=== PATIENT | male | born 1965 | race Two or more races ===

== ENCOUNTER → 2021-06-30 | Outpatient (CLI) | payer MEDICAID | END | disposition home or self-care (01) | LOC: Rad HDHVI 12:47 | PROVIDERS: ATTEND Internal Medicine Cardiovascular Disease | DX: I10 Essential (primary) hypertension (principal); E78.5 Hyperlipidemia, unspecified; R42 Dizziness and giddiness | CPT/HCPCS: 93880 ==

== ENCOUNTER → 2022-02-02 | Outpatient (CLI) | payer MEDICARE, MEDICAID | END | disposition home or self-care (01) | LOC: Rad HDHVI 09:20 | PROVIDERS: ATTEND Internal Medicine Cardiovascular Disease | DX: I82.409 Acute embolism and thrombosis of unspecified deep veins of unspecified lower extremity (principal); I73.9 Peripheral vascular disease, unspecified; M79.661 Pain in right lower leg | CPT/HCPCS: 93926; 93971 ==

== ENCOUNTER → 2022-07-26 | Outpatient (CLI) | payer MEDICARE, MEDICAID ==
[~2022-07-26] VITALS: Ht 182.9 cm; Wt 90.7 kg
== END | disposition home or self-care (01) ==
LOC: Rad HDHVI 13:00
PROVIDERS: ATTEND Internal Medicine Cardiovascular Disease
DX: I25.10 Atherosclerotic heart disease of native coronary artery without angina pectoris (principal); I25.2 Old myocardial infarction; R55 Syncope and collapse; I10 Essential (primary) hypertension; E11.9 Type 2 diabetes mellitus without complications; E78.5 Hyperlipidemia, unspecified; Z82.49 Family history of ischemic heart disease and other diseases of the circulatory system; Z95.0 Presence of cardiac pacemaker
CPT/HCPCS: 78452; 93017; 96374; A9500

== ENCOUNTER → 2022-08-02 | Outpatient (CLI) | payer MEDICARE, MEDICAID | END | disposition home or self-care (01) | LOC: Rad HDHVI 12:59 | PROVIDERS: ATTEND Internal Medicine Cardiovascular Disease | DX: I08.8 Other rheumatic multiple valve diseases (principal); I11.9 Hypertensive heart disease without heart failure | CPT/HCPCS: 93306 ==

== ENCOUNTER → 2022-11-04 | Outpatient (CLI) | payer MEDICARE, MEDICAID ==
[2022-11-04 15:03] LABS: Basophils # (auto) 0 10 ^3/uL (0-0.2); Basophils % (auto) 0.2 % (0.0-2.0); Eosinophils # (auto) 0.1 10 ^3/uL (0-0.8); Eosinophils % (auto) 0.7 % (0.0-7.0); Lymphocytes # (auto) 1.3 10 ^3/uL (0.4-5.4); Neutrophils # (auto) 8.7 10 ^3/uL (1.6-8.6); Red Blood Cells 5.14 10^6/uL (4.5-5.90)
[2022-11-04 15:06] LABS: Hematocrit 39.7 % (41.0-53.0); Hemoglobin 13.1 g/dL (13.5-17.5); Lymphocytes % (auto) 11.4 % (10.0-50.0); Mean Corpuscular Hemoglobin 25.6 pg (28.0-32.0); Mean Corpuscular Hgb Conc. 33.1 g/dL (32.0-36.0); Mean Corpuscular Volume 77.4 fL (80.0-100.0); Monocytes % (auto) 8.7 % (0.0-12.0); Red Cell Distribution Width 17.4 % (11.8-14.3)
[2022-11-04 15:29] LABS: Albumin 2.5 g/dL (3.4-5.0); BUN/Creatinine Ratio 8.8 (10.0-20.0); Calcium 8.1 mg/dL (8.5-10.1); Potassium 3.4 mmol/L (3.5-5.1)
[2022-11-04 15:32] LABS: Bilirubin, Total 0.6 mg/dL (0.2-1.0); Total Protein 5.5 g/dL (6.4-8.2)
== END | disposition home or self-care (01) ==
LOC: LAB 14:34
PROVIDERS: ATTEND Internal Medicine Cardiovascular Disease
DX: D64.9 Anemia, unspecified (principal); N39.0 Urinary tract infection, site not specified
CPT/HCPCS: 36415; 80053; 85025; 87086

== ENCOUNTER 2022-11-14 17:52 | Inpatient (IN) | payer MEDICARE, MEDICAID ==
[~2022-11-14] VITALS: Ht 182.9 cm; Wt 87.5 kg
[2022-11-14 22:56] VITALS: PULSE 88; RESP 18; O2SAT 94
[2022-11-14] MEDS ORDERED: LEVEMIR SC (22:59)
[2022-11-14] MEDS ORDERED: DEXTROSE (50%) 50ML SYRG IV PRN (23:00)
[2022-11-14] MEDS ORDERED: PRAV20TA3 PO (23:06)
[2022-11-14] MEDS ORDERED: FINE10TA PO (23:06)
[2022-11-14] MEDS ORDERED: ASPI-498 OR (23:06)
[2022-11-14] MEDS ORDERED: INSU100I28 IJ (23:06)
[2022-11-14] MEDS ORDERED: GABA-339 PO (23:34)
[2022-11-14] MEDS ORDERED: EMPA1TAB3 PO (23:34)
[2022-11-14] MEDS ORDERED: CIPR500T4 PO (23:34)
[2022-11-14 23:42] LABS: Basophils # (auto) 0.1 10 ^3/uL (0-0.2); Eosinophils # (auto) 0.3 10 ^3/uL (0-0.8); Hemoglobin 13.3 g/dL (13.5-17.5); Lymphocytes # (auto) 2.1 10 ^3/uL (0.4-5.4); Monocytes # (auto) 0.7 10 ^3/uL (0-1.3); White Blood Cell 10.3 10^3/uL (4.4-10.8)
[2022-11-14 23:44] LABS: Basophils % (auto) 0.6 % (0.0-2.0); Eosinophils % (auto) 2.6 % (0.0-7.0); Hematocrit 40.7 % (41.0-53.0); Lymphocytes % (auto) 20.3 % (10.0-50.0); Mean Corpuscular Hemoglobin 25.4 pg (28.0-32.0); Mean Corpuscular Hgb Conc. 32.6 g/dL (32.0-36.0); Mean Corpuscular Volume 77.8 fL (80.0-100.0); Monocytes % (auto) 6.7 % (0.0-12.0); Neutrophils # (auto) 7.2 10 ^3/uL (1.6-8.6); Neutrophils % (auto) 69.8 % (37.0-80.0); Nucleated Red Blood Cells % 0.1 %; Red Blood Cells 5.24 10^6/uL (4.5-5.90); Red Cell Distribution Width 17.4 % (11.8-14.3)
[2022-11-14 23:57] LABS: INR 1.04 (0.9-1.15); Partial Thromboplastin Time 26.9 SEC (24.5-34.5); Prothrombin Time 10.9 sec (9.3-11.8)
[2022-11-14 23:59] LABS: Albumin 2.8 g/dL (3.4-5.0); Calcium 8.9 mg/dL (8.5-10.1); Potassium 4.1 mmol/L (3.5-5.1)
[2022-11-15 00:02] LABS: Bilirubin, Total 0.2 mg/dL (0.2-1.0); Total Protein 6.1 g/dL (6.4-8.2)
[2022-11-15] MEDS: GABAPENTIN 300 MG CAP PO SCH ×4 (00:06→21:55)
[2022-11-15] MEDS: levoFLOXacin 500MG 100 ML IV SCH ×2 (00:11→08:50)
[2022-11-15 05:00] VITALS: BP 124/75; PULSE 82; RESP 17; TEMP 97.6; O2SAT 93
[2022-11-15] MEDS: InsuLIN REG 1unit/0.01ml Soln (100units/ml) SC SCH ×4 (06:31→22:05)
[2022-11-15] MEDS: INSULIN LANTUS (GLARGINE) 1 /0.01ml (100units/ml) SC SCH (06:31)
[2022-11-15] MEDS: ACCU-CHEK COMFORT CURVE STRIP VI SCH ×4 (06:32→22:00)
[2022-11-15 08:00] VITALS: BP 131/91; PULSE 81; RESP 18; TEMP 97.9; O2SAT 98
[2022-11-15 09:00] VITALS: BP 131/91; PULSE 81; RESP 18; TEMP 97.9; O2SAT 98
[2022-11-15 13:00] VITALS: BP 119/79; PULSE 86; RESP 18; TEMP 97.9; O2SAT 95
[2022-11-15] MEDS ORDERED: SEMA2INJ3 SC (15:36)
[2022-11-15 17:00] VITALS: BP 121/77; PULSE 77; RESP 18; TEMP 97.7; O2SAT 100
[2022-11-15 20:00] VITALS: PULSE 85; RESP 18; O2SAT 98
[2022-11-16] VITALS (7 sets, daily range): BP systolic 112–134; BP diastolic 71–86; PULSE 74–84; RESP 16–19; TEMP 97.6–98.8; O2SAT 92–99
[2022-11-16] MEDS: ACCU-CHEK COMFORT CURVE STRIP VI SCH ×4 (06:17→21:43)
[2022-11-16] MEDS: InsuLIN REG 1unit/0.01ml Soln (100units/ml) SC SCH ×4 (06:21→21:45)
[2022-11-16] MEDS: INSULIN LANTUS (GLARGINE) 1 /0.01ml (100units/ml) SC SCH (06:22)
[2022-11-16] MEDS: GABAPENTIN 300 MG CAP PO SCH ×3 (06:26→21:39)
[2022-11-16] MEDS: levoFLOXacin 500MG 100 ML IV SCH (09:29)
[2022-11-16] MEDS: TEMAZEPAM 15 MG CAP PO PRN (21:43)
[2022-11-17] VITALS (7 sets, daily range): BP systolic 103–128; BP diastolic 74–80; PULSE 58–85; RESP 18–20; TEMP 97.6–98.6; O2SAT 97–100
[2022-11-17] MEDS: GABAPENTIN 300 MG CAP PO SCH ×3 (05:49→21:13)
[2022-11-17] MEDS: InsuLIN REG 1unit/0.01ml Soln (100units/ml) SC SCH ×4 (05:54→21:13)
[2022-11-17] MEDS: ACCU-CHEK COMFORT CURVE STRIP VI SCH ×4 (05:55→21:13)
[2022-11-17] MEDS: INSULIN LANTUS (GLARGINE) 1 /0.01ml (100units/ml) SC SCH (06:27)
[2022-11-17 06:29] LABS: Basophils # (auto) 0 10 ^3/uL (0-0.2); Basophils % (auto) 0.3 % (0.0-2.0); Eosinophils # (auto) 0.2 10 ^3/uL (0-0.8); Eosinophils % (auto) 2.1 % (0.0-7.0); Hemoglobin 12.4 g/dL (13.5-17.5); Lymphocytes # (auto) 1.8 10 ^3/uL (0.4-5.4); Lymphocytes % (auto) 21.3 % (10.0-50.0); Mean Corpuscular Hemoglobin 25.5 pg (28.0-32.0); Mean Corpuscular Hgb Conc. 32.5 g/dL (32.0-36.0); Mean Corpuscular Volume 78.5 fL (80.0-100.0); Monocytes # (auto) 0.6 10 ^3/uL (0-1.3); Neutrophils # (auto) 5.9 10 ^3/uL (1.6-8.6); Neutrophils % (auto) 69.3 % (37.0-80.0); Nucleated Red Blood Cells % 0.1 %; Red Blood Cells 4.84 10^6/uL (4.5-5.90); Red Cell Distribution Width 17.8 % (11.8-14.3); White Blood Cell 8.6 10^3/uL (4.4-10.8)
[2022-11-17] MEDS: levoFLOXacin 500MG 100 ML IV SCH (10:12)
[2022-11-18] VITALS (8 sets, daily range): BP systolic 98–125; BP diastolic 61–77; PULSE 55–88; RESP 16–80; TEMP 98–98.8; O2SAT 95–99
[2022-11-18] MEDS: InsuLIN REG 1unit/0.01ml Soln (100units/ml) SC SCH ×4 (06:30→21:38)
[2022-11-18] MEDS: GABAPENTIN 300 MG CAP PO SCH ×3 (06:31→21:39)
[2022-11-18] MEDS: ACCU-CHEK COMFORT CURVE STRIP VI SCH ×4 (06:31→21:39)
[2022-11-18] MEDS: INSULIN LANTUS (GLARGINE) 1 /0.01ml (100units/ml) SC SCH (06:31)
[2022-11-18] MEDS: levoFLOXacin 500MG 100 ML IV SCH (10:27)
[2022-11-18] MEDS: TEMAZEPAM 15 MG CAP PO PRN (21:43)
[2022-11-19 05:00] VITALS: BP 95/65; PULSE 71; RESP 16; TEMP 97.6; O2SAT 92
[2022-11-19] MEDS: InsuLIN REG 1unit/0.01ml Soln (100units/ml) SC SCH ×4 (06:35→21:59)
[2022-11-19] MEDS: INSULIN LANTUS (GLARGINE) 1 /0.01ml (100units/ml) SC SCH (06:36)
[2022-11-19] MEDS: GABAPENTIN 300 MG CAP PO SCH ×3 (06:36→22:01)
[2022-11-19] MEDS: ACCU-CHEK COMFORT CURVE STRIP VI SCH ×4 (06:36→21:56)
[2022-11-19 08:00] VITALS: BP 123/85; PULSE 74; RESP 18; TEMP 98.4; O2SAT 98
[2022-11-19 09:00] VITALS: BP 123/85; PULSE 74; RESP 18; TEMP 98; O2SAT 98
[2022-11-19] MEDS: levoFLOXacin 500MG 100 ML IV SCH (10:24)
[2022-11-19 13:00] VITALS: BP 124/81; PULSE 68; RESP 19; TEMP 98.4; O2SAT 96
[2022-11-19 17:00] VITALS: BP 118/81; PULSE 76; RESP 14; TEMP 97.8; O2SAT 98
[2022-11-19 22:00] VITALS: BP 113/71; PULSE 73; RESP 16; TEMP 97.8; O2SAT 93
[2022-11-19] MEDS: TEMAZEPAM 15 MG CAP PO PRN (22:00)
[2022-11-20 05:07] VITALS: BP 101/61; PULSE 70; RESP 20; TEMP 97.7; O2SAT 95
[2022-11-20] MEDS: ACCU-CHEK COMFORT CURVE STRIP VI SCH ×4 (06:28→22:26)
[2022-11-20] MEDS: GABAPENTIN 300 MG CAP PO SCH ×3 (06:28→22:10)
[2022-11-20] MEDS: InsuLIN REG 1unit/0.01ml Soln (100units/ml) SC SCH ×4 (06:35→22:13)
[2022-11-20] MEDS: INSULIN LANTUS (GLARGINE) 1 /0.01ml (100units/ml) SC SCH (06:38)
[2022-11-20 08:50] VITALS: BP 136/85; PULSE 65; RESP 14; TEMP 97.4; O2SAT 99
[2022-11-20] MEDS: levoFLOXacin 500MG 100 ML IV SCH (09:32)
[2022-11-20 13:00] VITALS: BP 119/79; PULSE 68; RESP 18; TEMP 97.6; O2SAT 99
[2022-11-20 17:04] VITALS: BP 119/70; PULSE 67; RESP 16; TEMP 97.8; O2SAT 99
[2022-11-20 22:00] VITALS: BP 107/68; PULSE 83; RESP 18; TEMP 98.1; O2SAT 94
[2022-11-20] MEDS: TEMAZEPAM 15 MG CAP PO PRN (22:22)
[2022-11-21 05:00] VITALS: BP 119/72; PULSE 72; RESP 18; TEMP 97.7; O2SAT 94
[2022-11-21] MEDS: GABAPENTIN 300 MG CAP PO SCH ×2 (06:44→13:14)
[2022-11-21] MEDS: InsuLIN REG 1unit/0.01ml Soln (100units/ml) SC SCH ×2 (06:46→11:49)
[2022-11-21] MEDS: INSULIN LANTUS (GLARGINE) 1 /0.01ml (100units/ml) SC SCH (06:47)
[2022-11-21] MEDS: ACCU-CHEK COMFORT CURVE STRIP VI SCH ×2 (06:48→11:40)
[2022-11-21 08:15] VITALS: BP 114/82; PULSE 76; RESP 20; TEMP 98.9; O2SAT 95
[2022-11-21 09:00] VITALS: BP 115/78; PULSE 70; RESP 18; TEMP 97.9; O2SAT 98
[2022-11-21] MEDS: levoFLOXacin 500MG 100 ML IV SCH (10:37)
[2022-11-21 13:00] VITALS: BP 117/74; PULSE 70; RESP 18; TEMP 97.5; O2SAT 98
[2022-11-21 14:59] VITALS: BP 117/74; PULSE 70; RESP 18; TEMP 97.5; O2SAT 98
== END 2022-11-21 16:31 | disposition home or self-care (01) | DRG 373 ==
LOC: EDBD → WEST WING 21:18
PROVIDERS: ADMIT Internal Medicine Cardiovascular Disease; ATTEND Internal Medicine Cardiovascular Disease
DX: K35.33 Acute appendicitis with perforation, localized peritonitis, and gangrene, with abscess (principal); E11.22 Type 2 diabetes mellitus with diabetic chronic kidney disease; N18.30 Chronic kidney disease, stage 3 unspecified; I12.9 Hypertensive chronic kidney disease with stage 1 through stage 4 chronic kidney disease, or unspecified chronic kidney disease; E78.5 Hyperlipidemia, unspecified; R63.4 Abnormal weight loss; R19.7 Diarrhea, unspecified; E11.21 Type 2 diabetes mellitus with diabetic nephropathy; E11.42 Type 2 diabetes mellitus with diabetic polyneuropathy; Z83.3 Family history of diabetes mellitus; Z79.899 Other long term (current) drug therapy; Z68.26 Body mass index [BMI] 26.0-26.9, adult
CPT/HCPCS: 36415; 71045; 74177; 80053; 82962; 85025; 85610; 85730; 93005; 96365; G0378; G0463; J1815; J1956

== ENCOUNTER → 2022-11-14 | Outpatient (CLI) | payer MEDICARE, MEDICAID ==
[~2022-11-14] MED LIST: ASPI-498 OR; CIPR500T4 PO; EMPA1TAB3 PO; FINE10TA PO; GABA-339 PO; INSU100I28 IJ; LEVEMIR SC; PRAV20TA3 PO; SEMA2INJ3 SC; levoFLOXacin 500MG 100 ML IV ONE
[2022-11-14 13:00] VITALS: BP 127/82; PULSE 74; RESP 18; O2SAT 99
[2022-11-14 14:18] VITALS: BP 125/78; PULSE 80; RESP 18; O2SAT 99
== END | disposition home or self-care (01) ==
LOC: EDBD → CHF HDHVI 13:02
PROVIDERS: ATTEND Internal Medicine Cardiovascular Disease
DX: K35.33 Acute appendicitis with perforation, localized peritonitis, and gangrene, with abscess (principal); I12.9 Hypertensive chronic kidney disease with stage 1 through stage 4 chronic kidney disease, or unspecified chronic kidney disease; E11.22 Type 2 diabetes mellitus with diabetic chronic kidney disease; N18.30 Chronic kidney disease, stage 3 unspecified; E78.5 Hyperlipidemia, unspecified; Z79.899 Other long term (current) drug therapy; E11.42 Type 2 diabetes mellitus with diabetic polyneuropathy
CPT/HCPCS: 96365; G0463; J1956

== ENCOUNTER → 2022-11-29 | Outpatient (CLI) | payer MEDICARE, MEDICAID ==
[~2022-11-29] MED LIST changes: +IOHEXOL 350 MG/ML 100ML IJ ONE; -levoFLOXacin 500MG 100 ML IV ONE
== END | disposition home or self-care (01) ==
LOC: Rad HDHVI 11:00
PROVIDERS: ATTEND Internal Medicine Cardiovascular Disease
DX: K36 Other appendicitis (principal); R10.11 Right upper quadrant pain; I70.0 Atherosclerosis of aorta
CPT/HCPCS: 74177; Q9967

== ENCOUNTER 2022-12-05 21:44 | Inpatient (IN) | payer MEDICARE, MEDICAID ==
[~2022-12-05] VITALS: Ht 182.9 cm; Wt 93.6 kg
[~2022-12-05 21:44] MED LIST changes: -IOHEXOL 350 MG/ML 100ML IJ ONE
[2022-12-05 22:34] LABS: Basophils # (auto) 0.1 10 ^3/uL (0-0.2); Eosinophils # (auto) 0.5 10 ^3/uL (0-0.8); Neutrophils # (auto) 6.1 10 ^3/uL (1.6-8.6)
[2022-12-05 22:35] LABS: Basophils % (auto) 1.2 % (0.0-2.0); Eosinophils % (auto) 4.9 % (0.0-7.0); Hematocrit 39.9 % (41.0-53.0); Mean Corpuscular Hemoglobin 25.6 pg (28.0-32.0); Mean Corpuscular Hgb Conc. 32.5 g/dL (32.0-36.0); Mean Corpuscular Volume 78.9 fL (80.0-100.0); Monocytes # (auto) 0.8 10 ^3/uL (0-1.3); Monocytes % (auto) 8.5 % (0.0-12.0); Neutrophils % (auto) 64.4 % (37.0-80.0); Red Blood Cells 5.06 10^6/uL (4.5-5.90); Red Cell Distribution Width 18.2 % (11.8-14.3); White Blood Cell 9.4 10^3/uL (4.4-10.8)
[2022-12-05 22:39] LABS: Urine Bacteria NONE SEEN /hpf (None Seen); Urine Blood Negative /uL (Negative); Urine Clarity Clear (Clear); Urine Color Colorless (Yellow); Urine Protein, UAD Negative (Negative); Urine Specific Gravity 1.019 (1.001-1.035); Urine Urobilinogen Normal (Negative); Urine WBC <1 /hpf (0 - 3)
[2022-12-05 22:54] LABS: Albumin 3.1 g/dL (3.4-5.0); Calcium 9.7 mg/dL (8.7-10.4); Potassium 3.9 mmol/L (3.5-5.1)
[2022-12-05 22:58] LABS: BUN/Creatinine Ratio 17.7 (10.0-20.0); Bilirubin, Total 0.2 mg/dL (0.2-1.0); Total Protein 6.4 g/dL (6.4-8.2)
[2022-12-06 00:30] VITALS: BP 98/62; PULSE 99; RESP 19; TEMP 97.6; O2SAT 91
[2022-12-06] MEDS ORDERED: ONDANSETRON HCL 4 MG/2 ML VIAL IV ONE (00:30)
[2022-12-06] MEDS ORDERED: LACTATED RINGER'S 1,000 ML IV ONE (00:30)
[2022-12-06] MEDS ORDERED: metroNIDAZOLE 500MG/100ML 100 ML IV ONE (00:30)
[2022-12-06] MEDS ORDERED: MORPHINE SULFATE 4 MG/ML SYR/VIAL IV ONE (00:30)
[2022-12-06] MEDS ORDERED: PIPERACILLIN-TAZOB 3.375GM 100 ML IV ONE (00:30)
[2022-12-06] MEDS: SODIUM CHLORIDE 0.9% 1,000 ML IV SCH ×2 (01:45→14:15)
[2022-12-06] MEDS ORDERED: ONDANSETRON HCL 4 MG/2 ML VIAL IV PRN ×2 (01:45→15:00)
[2022-12-06] MEDS ORDERED: DEXTROSE (50%) 50ML SYRG IV PRN (01:45)
[2022-12-06 02:04] LABS: Partial Thromboplastin Time 26.1 SEC (24.5-34.5); Prothrombin Time 10.5 sec (9.3-11.8)
[2022-12-06] MEDS: ACCU-CHEK COMFORT CURVE STRIP VI SCH ×3 (06:00→18:00)
[2022-12-06] MEDS: InsuLIN REG 1unit/0.01ml Soln (100units/ml) SC SCH ×3 (08:34→18:00)
[2022-12-06] MEDS: PANTOPRAZOLE 40 MG/10 ML VIAL INJ IV SCH (10:41)
[2022-12-06] MEDS: PIPERACILLIN-TAZOB 3.375GM 100 ML IV SCH (10:42)
[2022-12-06] MEDS ORDERED: MEPERIDINE HCL (50 MG/ML) 1 ML VIAL ONE (14:28)
[2022-12-06] MEDS ORDERED: fentaNYL CITRATE 100 MCG/2 ML VL ONE (14:28)
[2022-12-06] MEDS ORDERED: MIDAZOLAM HCL 2MG/2ML 2ml VIAL (1mg/ml) ONE (14:28)
[2022-12-06] MEDS ORDERED: SUCCINYLCHOLINE CHLORIDE 20 MG/ML 10ML VIAL IV ONE (14:29)
[2022-12-06] MEDS ORDERED: LIDOCAINE 2% JELLY 11ml (GLYDO) ONE (14:48)
[2022-12-06] MEDS ORDERED: MIDAZOLAM HCL 2MG/2ML 2ml VIAL (1mg/ml) IV PRN (15:00)
[2022-12-06] MEDS ORDERED: LABETALOL HCL 5 MG/ML 4ML SYRINGE IV PRN (15:00)
[2022-12-06] MEDS ORDERED: ACCU-CHEK COMFORT CURVE STRIP VI ONE (15:00)
[2022-12-06] MEDS ORDERED: HYDROmorphone HCL 2 MG/ML VL/or syr IV PRN (15:00)
[2022-12-06] MEDS ORDERED: ePHEDrine SULFATE 50 MG/ML AMP IV PRN (15:00)
[2022-12-06] MEDS ORDERED: MORPHINE SULFATE 4 MG/ML SYR/VIAL IV PRN (15:00)
[2022-12-06] MEDS ORDERED: LIDOCAINE 1% HCL (LOCAL ANESTH.) INJ 20ML MDV ONE (15:14)
[2022-12-06] MEDS ORDERED: DexAMETHasone SOD PHOS 10MG/1ML VIAL INJ ONE (15:17)
[2022-12-06] MEDS ORDERED: ONDANSETRON HCL 4 MG/2 ML VIAL ONE (15:17)
[2022-12-06] MEDS ORDERED: PROPOFOL 10 MG/ML 20 ML IV ONE (15:17)
[2022-12-06] MEDS: metroNIDAZOLE 500MG/100ML 100 ML IV SCH (16:00)
[2022-12-06] MEDS ORDERED: SUGAMMADEX 200mg/2ml Vial (100MG/ML) IV ONE (16:24)
[2022-12-06 16:45] VITALS: O2SAT 98
[2022-12-07] MEDS: metroNIDAZOLE 500MG/100ML 100 ML IV SCH ×3 (00:24→16:17)
[2022-12-07] MEDS: PIPERACILLIN-TAZOB 3.375GM 100 ML IV SCH ×3 (00:33→23:12)
[2022-12-07] MEDS: InsuLIN REG 1unit/0.01ml Soln (100units/ml) SC SCH ×4 (00:58→18:00)
[2022-12-07] MEDS: SODIUM CHLORIDE 0.9% 1,000 ML IV SCH (02:58)
[2022-12-07 05:00] VITALS: BP 108/66; PULSE 95; RESP 18; TEMP 97.8; O2SAT 93
[2022-12-07] MEDS: ACCU-CHEK COMFORT CURVE STRIP VI SCH ×4 (06:00→18:02)
[2022-12-07 06:35] LABS: Basophils # (auto) 0 10 ^3/uL (0-0.2); Eosinophils # (auto) 0 10 ^3/uL (0-0.8); Hematocrit 38.5 % (41.0-53.0); Hemoglobin 12.3 g/dL (13.5-17.5); Lymphocytes # (auto) 0.5 10 ^3/uL (0.4-5.4); Lymphocytes % (auto) 4.4 % (10.0-50.0); Mean Corpuscular Hemoglobin 25.4 pg (28.0-32.0); Mean Corpuscular Hgb Conc. 31.9 g/dL (32.0-36.0); Mean Corpuscular Volume 79.7 fL (80.0-100.0); Monocytes # (auto) 0.4 10 ^3/uL (0-1.3); Monocytes % (auto) 3.4 % (0.0-12.0); Neutrophils # (auto) 11.2 10 ^3/uL (1.6-8.6); Neutrophils % (auto) 92.2 % (37.0-80.0); Nucleated Red Blood Cells % 0.1 %; Red Blood Cells 4.82 10^6/uL (4.5-5.90); Red Cell Distribution Width 18.2 % (11.8-14.3); White Blood Cell 12.1 10^3/uL (4.4-10.8)
[2022-12-07 06:44] LABS: Alanine Aminotransferase 14 U/L (7-40); Alkaline Phosphatase 79 U/L (46-116); Anion Gap 10.8 (5-15); Blood Urea Nitrogen 27 mg/dL (9-23); Calcium 8.8 mg/dL (8.5-10.1); Carbon Dioxide 26.2 mmol/L (20-30); Chloride 105 mmol/L (98-107); Glucose 288 mg/dL (74-106); Potassium 4.8 mmol/L (3.5-5.1); Sodium 142 mmol/L (136-145)
[2022-12-07 06:45] LABS: Aspartate Aminotransferase 10 U/L (13-40); Bilirubin, Total 0.5 mg/dL (0.2-1.0); Total Protein 5.3 g/dL (5.7-8.2)
[2022-12-07 06:48] LABS: Albumin 3.8 g/dL (3.2-4.8)
[2022-12-07 08:00] VITALS: RESP 18; TEMP 36.6; O2SAT 91
[2022-12-07 09:00] VITALS: BP 111/72; PULSE 106; RESP 20; TEMP 98.6; O2SAT 91
[2022-12-07] MEDS: PANTOPRAZOLE 40 MG/10 ML VIAL INJ IV SCH (11:18)
[2022-12-07] MEDS: MORPHINE SULFATE INJ 2 MG/ml SYRG IV PRN ×3 (11:29→23:19)
[2022-12-07 13:00] VITALS: BP 114/66; PULSE 97; RESP 20; TEMP 98.1; O2SAT 91
[2022-12-07 16:33] VITALS: BP 102/62; PULSE 75; RESP 18; TEMP 98.1; O2SAT 92
[2022-12-07 22:00] VITALS: BP 106/65; PULSE 81; RESP 18; TEMP 98.3; O2SAT 93
[2022-12-08] VITALS (8 sets, daily range): BP systolic 105–138; BP diastolic 69–77; PULSE 66–96; RESP 18–20; TEMP 36.6; O2SAT 91–94
[2022-12-08] MEDS: InsuLIN REG 1unit/0.01ml Soln (100units/ml) SC SCH ×4 (00:50→17:19)
[2022-12-08] MEDS: metroNIDAZOLE 500MG/100ML 100 ML IV SCH ×2 (00:58→08:48)
[2022-12-08] MEDS: SODIUM CHLORIDE 0.9% 1,000 ML IV SCH ×3 (01:00→16:15)
[2022-12-08] MEDS: ACCU-CHEK COMFORT CURVE STRIP VI SCH ×4 (06:00→17:20)
[2022-12-08] MEDS: MORPHINE SULFATE INJ 2 MG/ml SYRG IV PRN (07:16)
[2022-12-08] MEDS: PIPERACILLIN-TAZOB 3.375GM 100 ML IV SCH ×2 (10:11→22:09)
[2022-12-08 13:14] LABS: Basophils # (auto) 0 10 ^3/uL (0-0.2); Basophils % (auto) 0.3 % (0.0-2.0); Eosinophils # (auto) 0 10 ^3/uL (0-0.8); Monocytes # (auto) 0.7 10 ^3/uL (0-1.3); Red Blood Cells 4.58 10^6/uL (4.5-5.90); White Blood Cell 13.1 10^3/uL (4.4-10.8)
[2022-12-08 13:17] LABS: Eosinophils % (auto) 0.1 % (0.0-7.0); Hematocrit 36.5 % (41.0-53.0); Hemoglobin 11.5 g/dL (13.5-17.5); Lymphocytes # (auto) 1.5 10 ^3/uL (0.4-5.4); Lymphocytes % (auto) 11.2 % (10.0-50.0); Mean Corpuscular Hemoglobin 25.1 pg (28.0-32.0); Mean Corpuscular Hgb Conc. 31.5 g/dL (32.0-36.0); Mean Corpuscular Volume 79.6 fL (80.0-100.0); Monocytes % (auto) 5.1 % (0.0-12.0); Neutrophils % (auto) 83.3 % (37.0-80.0); Red Cell Distribution Width 18.7 % (11.8-14.3)
[2022-12-08 13:31] LABS: Chloride 106 mmol/L (98-107); Potassium 4.1 mmol/L (3.5-5.1); Sodium 140 mmol/L (136-145)
[2022-12-08 13:32] LABS: Anion Gap 7.9 (5-15); Calcium 8.6 mg/dL (8.7-10.4); Carbon Dioxide 26.1 mmol/L (20-30)
[2022-12-08 13:37] LABS: BUN/Creatinine Ratio 20.1 (10.0-20.0); Blood Urea Nitrogen 28 mg/dL (9-23)
[2022-12-08 13:40] LABS: Glucose 185 mg/dL (74-106)
[2022-12-09] VITALS (7 sets, daily range): BP systolic 122–134; BP diastolic 74–84; PULSE 72–88; RESP 16–19; TEMP 97.7–98.2; O2SAT 92–100
[2022-12-09] MEDS: ACCU-CHEK COMFORT CURVE STRIP VI SCH ×4 (00:27→17:15)
[2022-12-09] MEDS: InsuLIN REG 1unit/0.01ml Soln (100units/ml) SC SCH ×4 (00:27→17:15)
[2022-12-09] MEDS: SODIUM CHLORIDE 0.9% 1,000 ML IV SCH ×2 (06:22→17:18)
[2022-12-09] MEDS: PIPERACILLIN-TAZOB 3.375GM 100 ML IV SCH ×2 (12:26→17:18)
[2022-12-09] MEDS: MORPHINE SULFATE INJ 2 MG/ml SYRG IV PRN (12:52)
[2022-12-10] MEDS: ACCU-CHEK COMFORT CURVE STRIP VI SCH ×4 (01:05→18:29)
[2022-12-10] MEDS: InsuLIN REG 1unit/0.01ml Soln (100units/ml) SC SCH ×4 (01:07→18:51)
[2022-12-10] MEDS: PIPERACILLIN-TAZOB 3.375GM 100 ML IV SCH ×4 (01:12→18:29)
[2022-12-10 05:00] VITALS: BP 121/66; PULSE 88; RESP 20; TEMP 98.2; O2SAT 94
[2022-12-10] MEDS: SODIUM CHLORIDE 0.9% 1,000 ML IV SCH ×2 (05:45→18:34)
[2022-12-10 06:46] LABS: Chloride 103 mmol/L (98-107); Potassium 3.5 mmol/L (3.5-5.1); Sodium 136 mmol/L (136-145)
[2022-12-10 06:47] LABS: Anion Gap 5.8 (5-15); Carbon Dioxide 27.2 mmol/L (20-30)
[2022-12-10 06:48] LABS: Calcium 8.9 mg/dL (8.7-10.4)
[2022-12-10 06:52] LABS: BUN/Creatinine Ratio 12.9 (10.0-20.0); Blood Urea Nitrogen 15 mg/dL (9-23); Glucose 166 mg/dL (74-106)
[2022-12-10 06:53] LABS: Basophils # (auto) 0 10 ^3/uL (0-0.2); Eosinophils # (auto) 0.2 10 ^3/uL (0-0.8); Hemoglobin 12.4 g/dL (13.5-17.5); Monocytes # (auto) 0.6 10 ^3/uL (0-1.3); Neutrophils # (auto) 5.3 10 ^3/uL (1.6-8.6); Nucleated Red Blood Cells % 0.1 %
[2022-12-10 06:54] LABS: Basophils % (auto) 0.4 % (0.0-2.0); Eosinophils % (auto) 2.3 % (0.0-7.0); Hematocrit 37.8 % (41.0-53.0); Lymphocytes # (auto) 1.9 10 ^3/uL (0.4-5.4); Lymphocytes % (auto) 23.1 % (10.0-50.0); Mean Corpuscular Hemoglobin 25.4 pg (28.0-32.0); Mean Corpuscular Hgb Conc. 32.7 g/dL (32.0-36.0); Mean Corpuscular Volume 77.7 fL (80.0-100.0); Monocytes % (auto) 7.5 % (0.0-12.0); Neutrophils % (auto) 66.7 % (37.0-80.0); Red Blood Cells 4.87 10^6/uL (4.5-5.90); Red Cell Distribution Width 17.2 % (11.8-14.3)
[2022-12-10 08:53] VITALS: BP 112/78; PULSE 87; RESP 15; TEMP 98.4; O2SAT 98
[2022-12-10 12:44] VITALS: BP 115/79; PULSE 74; RESP 16; TEMP 97.9; O2SAT 93
[2022-12-10] MEDS: MORPHINE SULFATE INJ 2 MG/ml SYRG IV PRN (15:39)
[2022-12-10 16:39] VITALS: BP 112/81; PULSE 69; RESP 16; TEMP 98.4; O2SAT 100
[2022-12-10 20:00] VITALS: PULSE 82; RESP 18; O2SAT 94
[2022-12-10 22:00] VITALS: BP 104/74; PULSE 82; RESP 18; TEMP 98.4; O2SAT 94
[2022-12-11] MEDS: ACCU-CHEK COMFORT CURVE STRIP VI SCH ×3 (00:05→11:08)
[2022-12-11] MEDS: PIPERACILLIN-TAZOB 3.375GM 100 ML IV SCH ×3 (00:05→11:08)
[2022-12-11] MEDS: InsuLIN REG 1unit/0.01ml Soln (100units/ml) SC SCH ×3 (00:12→11:10)
[2022-12-11 05:00] VITALS: BP 100/69; PULSE 75; RESP 18; TEMP 98.4; O2SAT 93
[2022-12-11] MEDS: SODIUM CHLORIDE 0.9% 1,000 ML IV SCH (06:45)
[2022-12-11 09:04] VITALS: BP 100/72; PULSE 68; RESP 16; TEMP 98; O2SAT 96
[2022-12-11 12:46] VITALS: BP 100/76; PULSE 68; RESP 15; TEMP 97.9; O2SAT 95
[2022-12-11] MEDS ORDERED: DOCU-94 PO (13:37)
[2022-12-11] MEDS ORDERED: NAP500T PO (13:37)
[2022-12-11] MEDS ORDERED: CEPH250C PO (13:37)
[2022-12-11 15:23] VITALS: TEMP 36.6
[2022-12-11 16:53] VITALS: BP 120/80; PULSE 111; RESP 16; TEMP 98.4; O2SAT 94
== END 2022-12-11 18:00 | disposition home or self-care (01) | DRG 853 ==
LOC: ER 21:44 → OVERFLOW 12-06 01:41 → EDBD 12-06 01:41 → WEST WING 12-06 18:10
PROVIDERS: ADMIT Nurse Practitioner; ATTEND Nurse Practitioner Acute Care
PROC: 0DBH0ZZ Excision of Cecum, Open Approach (ICD-10-PCS; 2022-12-06)
PROC: 0WJG4ZZ Inspection of Peritoneal Cavity, Percutaneous Endoscopic Approach (ICD-10-PCS; 2022-12-06)
PROC: 0WQF0ZZ Repair Abdominal Wall, Open Approach (ICD-10-PCS; 2022-12-06)
PROC: 0DTJ0ZZ Resection of Appendix, Open Approach (ICD-10-PCS; principal; 2022-12-06 14:41)
DX: A41.9 Sepsis, unspecified organism (principal); K35.33 Acute appendicitis with perforation, localized peritonitis, and gangrene, with abscess; N17.0 Acute kidney failure with tubular necrosis; E44.1 Mild protein-calorie malnutrition; E11.22 Type 2 diabetes mellitus with diabetic chronic kidney disease; E78.5 Hyperlipidemia, unspecified; I12.9 Hypertensive chronic kidney disease with stage 1 through stage 4 chronic kidney disease, or unspecified chronic kidney disease; N18.30 Chronic kidney disease, stage 3 unspecified; G62.9 Polyneuropathy, unspecified; K42.9 Umbilical hernia without obstruction or gangrene; I25.10 Atherosclerotic heart disease of native coronary artery without angina pectoris; K52.9 Noninfective gastroenteritis and colitis, unspecified; K66.0 Peritoneal adhesions (postprocedural) (postinfection); Z53.31 Laparoscopic surgical procedure converted to open procedure; Z95.0 Presence of cardiac pacemaker; Z68.28 Body mass index [BMI] 28.0-28.9, adult; Z83.3 Family history of diabetes mellitus
CPT/HCPCS: 36415; 74176; 80048; 80053; 81001; 82962; 83690; 84484; 85025; 85610; 85730; 86850; 86900; 86901; 87081; 88302; 93005; 97110; 97116; 97163; 97530; C9113; G0378; J0330; J1100; J1815; J2001; J2250; J2405; J2543; J2704; J3490

== ENCOUNTER → 2023-03-28 | Outpatient (CLI) | payer MEDICARE, MEDICAID ==
[~2023-03-28] MED LIST changes: +CEPH250C PO; +DOCU-94 PO; +NAP500T PO
== END | disposition home or self-care (01) ==
LOC: Rad HDHVI 10:05
PROVIDERS: ATTEND Internal Medicine Cardiovascular Disease
DX: I08.8 Other rheumatic multiple valve diseases (principal); I10 Essential (primary) hypertension; R06.02 Shortness of breath
CPT/HCPCS: 93306

== ENCOUNTER → 2023-03-28 | Outpatient (CLI) | payer MEDICARE, MEDICAID ==
[2023-03-28 12:02] LABS: Basophils # (auto) 0.1 10 ^3/uL (0-0.2); Eosinophils # (auto) 0.3 10 ^3/uL (0-0.8); Eosinophils % (auto) 3.3 % (0.0-7.0); Hematocrit 43.5 % (41.0-53.0); Hemoglobin 14.1 g/dL (13.5-17.5); Lymphocytes # (auto) 2.4 10 ^3/uL (0.4-5.4); Mean Corpuscular Hemoglobin 24.8 pg (28.0-32.0); Mean Corpuscular Hgb Conc. 32.3 g/dL (32.0-36.0); Mean Corpuscular Volume 76.9 fL (80.0-100.0); Monocytes # (auto) 0.8 10 ^3/uL (0-1.3); Monocytes % (auto) 7.8 % (0.0-12.0); Neutrophils # (auto) 6.8 10 ^3/uL (1.6-8.6); Neutrophils % (auto) 64.9 % (37.0-80.0); Nucleated Red Blood Cells % 0.1 %; Red Blood Cells 5.66 10^6/uL (4.5-5.90); Red Cell Distribution Width 16.3 % (11.8-14.3); White Blood Cell 10.5 10^3/uL (4.4-10.8)
[2023-03-28 12:45] LABS: Urine Bacteria NONE SEEN /hpf (None Seen); Urine Blood Negative /uL (Negative); Urine Clarity Clear (Clear); Urine Protein, UAD Negative (Negative); Urine Specific Gravity 1.016 (1.001-1.035); Urine Urobilinogen Normal (Negative); Urine WBC 1 /hpf (0 - 3)
[2023-03-28 12:46] LABS: Urine Color Straw (Yellow)
[2023-03-28 12:57] LABS: Chloride 102 mmol/L (98-107); Sodium 137 mmol/L (136-145)
[2023-03-28 12:58] LABS: Anion Gap 7 (5-15); Calcium 9.5 mg/dL (8.5-10.1); Carbon Dioxide 28 mmol/L (20-30)
[2023-03-28 13:03] LABS: BUN/Creatinine Ratio 11.1 (10.0-20.0); Blood Urea Nitrogen 15 mg/dL (9-23); Glucose 114 mg/dL (74-106)
== END | disposition home or self-care (01) ==
LOC: LAB 11:41
PROVIDERS: ATTEND Internal Medicine Cardiovascular Disease
DX: C61 Malignant neoplasm of prostate (principal); D51.3 Other dietary vitamin B12 deficiency anemia; D64.9 Anemia, unspecified; E11.9 Type 2 diabetes mellitus without complications; I10 Essential (primary) hypertension; E55.9 Vitamin D deficiency, unspecified; R53.1 Weakness; R00.2 Palpitations; R30.0 Dysuria
CPT/HCPCS: 36415; 80048; 81001; 82306; 83036; 84153; 84403; 84443; 85025

== ENCOUNTER → 2023-06-12 | Outpatient (CLI) | payer MEDICARE, MEDICAID ==
[~2023-06-12] VITALS: Ht 182.9 cm; Wt 83.9 kg
== END | disposition home or self-care (01) ==
LOC: Rad HDHVI 09:50
PROVIDERS: ATTEND Internal Medicine Cardiovascular Disease
DX: I25.10 Atherosclerotic heart disease of native coronary artery without angina pectoris (principal); R55 Syncope and collapse; R06.02 Shortness of breath; E78.00 Pure hypercholesterolemia, unspecified; E11.21 Type 2 diabetes mellitus with diabetic nephropathy; I25.2 Old myocardial infarction; Z82.49 Family history of ischemic heart disease and other diseases of the circulatory system; Z95.0 Presence of cardiac pacemaker; Z79.82 Long term (current) use of aspirin; Z79.899 Other long term (current) drug therapy
CPT/HCPCS: 78452; 93017; 96374; A9500

== ENCOUNTER → 2023-08-09 | Outpatient (CLI) | payer MEDICARE, MEDICAID | END | disposition home or self-care (01) | LOC: Rad HDHVI 10:01 | PROVIDERS: ATTEND Internal Medicine Cardiovascular Disease | DX: I10 Essential (primary) hypertension (principal); R55 Syncope and collapse | CPT/HCPCS: 93880 ==

== ENCOUNTER → 2023-08-29 | Outpatient (CLI) | payer OTHER ==
[2023-08-29 09:00] VITALS: BP 132/88; PULSE 64; RESP 18; O2SAT 96
[2023-08-29 09:10] VITALS: BP 126/81; PULSE 68; RESP 18; O2SAT 96
== END | disposition home or self-care (01) ==
LOC: Rad HDHVI 08:52
PROVIDERS: ATTEND Internal Medicine Cardiovascular Disease
DX: Z01.818 Encounter for other preprocedural examination (principal); R00.2 Palpitations; R07.89 Other chest pain; R06.02 Shortness of breath; Z95.810 Presence of automatic (implantable) cardiac defibrillator
CPT/HCPCS: 71046; 93005; G0463

== ENCOUNTER 2023-08-31 10:14 | Day surgery (SDC) | payer OTHER, MEDICAID ==
[2023-08-29 11:53] LABS: INR 0.97 (0.9-1.15); Partial Thromboplastin Time 22.8 SEC (24.5-34.5); Prothrombin Time 10.3 sec (9.3-11.8)
[2023-08-29 12:31] LABS: Basophils # (auto) 0.1 10 ^3/uL (0-0.2); Lymphocytes # (auto) 1.6 10 ^3/uL (0.4-5.4)
[2023-08-29 12:33] LABS: Basophils % (auto) 0.6 % (0.0-2.0); Eosinophils # (auto) 0.3 10 ^3/uL (0-0.8); Eosinophils % (auto) 2.9 % (0.0-7.0); Hematocrit 43.5 % (41.0-53.0); Hemoglobin 13.6 g/dL (13.5-17.5); Lymphocytes % (auto) 14.3 % (10.0-50.0); Mean Corpuscular Hemoglobin 24.1 pg (28.0-32.0); Mean Corpuscular Hgb Conc. 31.4 g/dL (32.0-36.0); Mean Corpuscular Volume 76.8 fL (80.0-100.0); Monocytes # (auto) 0.9 10 ^3/uL (0-1.3); Monocytes % (auto) 8.5 % (0.0-12.0); Neutrophils # (auto) 8.1 10 ^3/uL (1.6-8.6); Neutrophils % (auto) 73.7 % (37.0-80.0); Red Blood Cells 5.67 10^6/uL (4.5-5.90); Red Cell Distribution Width 18.3 % (11.8-14.3); White Blood Cell 10.9 10^3/uL (4.4-10.8)
[2023-08-29 12:38] LABS: Chloride 101 mmol/L (98-107); Potassium 4.2 mmol/L (3.5-5.1); Sodium 138 mmol/L (136-145)
[2023-08-29 12:39] LABS: Anion Gap 7 (5-15); Calcium 10.3 mg/dL (8.5-10.1); Carbon Dioxide 30 mmol/L (20-30)
[2023-08-29 12:44] LABS: BUN/Creatinine Ratio 13.5 (10.0-20.0); Blood Urea Nitrogen 17 mg/dL (9-23); Glucose 113 mg/dL (74-106)
[~2023-08-31] VITALS: Ht 182.9 cm; Wt 90.7 kg
[~2023-08-31 10:14] MED LIST changes: -CEPH250C PO; -CIPR500T4 PO; -DOCU-94 PO; -NAP500T PO
[2023-08-31] MEDS ORDERED: VANCOMYCIN 1GM/200ML 200 ML IV ONE (11:00)
[2023-08-31] MEDS ORDERED: VANCOMYCIN HCL 1000 MG VL ONE (12:15)
[2023-08-31] MEDS ORDERED: fentaNYL CITRATE 100 MCG/2 ML VL ONE (12:15)
[2023-08-31] MEDS ORDERED: MIDAZOLAM HCL 2MG/2ML 2ml VIAL (1mg/ml) ONE (12:15)
[2023-08-31] MEDS ORDERED: LIDOCAINE 2%HCL (LOCAL ANESTH.) INJ 20ML MDV ONE (12:36)
[2023-08-31 14:18] VITALS: BP 143/90; PULSE 90; RESP 18; O2SAT 93
[2023-08-31 14:30] VITALS: BP 136/89; PULSE 91; RESP 17; O2SAT 90
[2023-08-31 14:40] VITALS: BP 126/88; PULSE 89; RESP 19
[2023-08-31 14:55] VITALS: BP 120/81; PULSE 87; RESP 19; O2SAT 92
[2023-08-31 15:10] VITALS: BP 110/76; PULSE 88; RESP 18; O2SAT 92
== END 2023-08-31 15:35 | disposition home or self-care (01) ==
LOC: CATH 10:14
PROVIDERS: ATTEND Internal Medicine Cardiovascular Disease
DX: I44.30 Unspecified atrioventricular block (principal); Z95.5 Presence of coronary angioplasty implant and graft; Z83.3 Family history of diabetes mellitus; Z79.82 Long term (current) use of aspirin; Z79.4 Long term (current) use of insulin; Z87.891 Personal history of nicotine dependence; Z79.899 Other long term (current) drug therapy; Z98.890 Other specified postprocedural states
CPT/HCPCS: 33228; 36415; 80048; 85025; 85610; 85730; C1785; J2250; J3010; J3370; 99152; 99153

== ENCOUNTER 2024-01-22 18:07 | Inpatient (IN) | payer OTHER, MEDICAID ==
[~2024-01-22] VITALS: Ht 182.9 cm; Wt 83.5 kg
[2024-01-22 21:00] VITALS: BP 126/83; PULSE 92; RESP 20; TEMP 97.6; O2SAT 95
[2024-01-22] MEDS: D5W/SOD CHL 0.45% 1,000 ML IV SCH (22:00)
[2024-01-22] MEDS: ACCU-CHEK COMFORT CURVE STRIP VI SCH (22:00)
[2024-01-22 22:31] LABS: Basophils # (auto) 0.1 10 ^3/uL (0-0.2); Hemoglobin 12.2 g/dL (13.5-17.5); Lymphocytes # (auto) 1.4 10 ^3/uL (0.4-5.4); Monocytes # (auto) 0.6 10 ^3/uL (0-1.3); Neutrophils # (auto) 4.3 10 ^3/uL (1.6-8.6); White Blood Cell 6.7 10^3/uL (4.4-10.8)
[2024-01-22 22:32] LABS: Basophils % (auto) 1.5 % (0.0-2.0); Eosinophils # (auto) 0.2 10 ^3/uL (0-0.8); Eosinophils % (auto) 3.7 % (0.0-7.0); Hematocrit 39.2 % (41.0-53.0); Lymphocytes % (auto) 21.3 % (10.0-50.0); Mean Corpuscular Hemoglobin 24.3 pg (28.0-32.0); Mean Corpuscular Hgb Conc. 31.3 g/dL (32.0-36.0); Mean Corpuscular Volume 77.7 fL (80.0-100.0); Monocytes % (auto) 9.4 % (0.0-12.0); Neutrophils % (auto) 64.1 % (37.0-80.0); Platelet Count (auto) 200 10^3/uL (140-450); Red Blood Cells 5.04 10^6/uL (4.5-5.90)
[2024-01-22 22:48] LABS: Alanine Aminotransferase 40 U/L (7-40); Albumin 3.8 g/dL (3.2-4.8); Alkaline Phosphatase 484 U/L (46-116); Anion Gap 6 (5-15); Aspartate Aminotransferase 74 U/L (13-40); BUN/Creatinine Ratio 14.2 (10.0-20.0); Bilirubin, Total 0.5 mg/dL (0.2-1.0); Blood Urea Nitrogen 16 mg/dL (9-23); Calcium 9.6 mg/dL (8.7-10.4); Carbon Dioxide 28 mmol/L (20-31); Chloride 101 mmol/L (98-107); Glucose 275 mg/dL (74-106); Potassium 4.1 mmol/L (3.5-5.1); Sodium 135 mmol/L (136-145); Total Protein 5.7 g/dL (5.7-8.2)
[2024-01-22 22:57] LABS: INR 0.99 (0.9-1.15); Partial Thromboplastin Time 20.8 SEC (24.5-34.5); Prothrombin Time 10.5 sec (9.3-11.8)
[2024-01-22] MEDS ORDERED: DEXTROSE (50%) 50ML SYRG IV PRN (23:00)
[2024-01-22] MEDS ORDERED: MORPHINE SULFATE INJ 2 MG/ml SYRG IV PRN (23:15)
[2024-01-22] MEDS ORDERED: NITROGLYCERIN 0.4 MG SL TAB SL PRN (23:15)
[2024-01-22] MEDS ORDERED: PRAV20TA3 PO (23:20)
[2024-01-22] MEDS ORDERED: CETI10CA PO (23:20)
[2024-01-22] MEDS ORDERED: GLIP5TAB21 PO (23:20)
[2024-01-22] MEDS ORDERED: INSU100I33 SC (23:20)
[2024-01-22] MEDS ORDERED: ACCU-CHEK COMFORT CURVE STRIP VI PRN (23:30)
[2024-01-22] MEDS: InsuLIN REG 1unit/0.01ml Soln (100units/ml) SC SCH (23:33)
[2024-01-23] VITALS (8 sets, daily range): BP systolic 103–136; BP diastolic 70–86; PULSE 62–102; RESP 16–20; TEMP 97.6–98.1; O2SAT 92–100
[2024-01-23] MEDS: ACCU-CHEK COMFORT CURVE STRIP VI SCH ×2 (06:36→12:54)
[2024-01-23] MEDS: InsuLIN REG 1unit/0.01ml Soln (100units/ml) SC SCH ×2 (06:36→12:00)
[2024-01-23] MEDS ORDERED: TPN PER PHARMACY 0 ML IV SCH (10:00)
[2024-01-23] MEDS ORDERED: DEXTROSE (50%) 50ML SYRG IV SCH (11:15)
[2024-01-23 11:21] LABS: Alanine Aminotransferase 48 U/L (7-40); Alkaline Phosphatase 503 U/L (46-116); Calcium 9.6 mg/dL (8.7-10.4); Carbon Dioxide 29 mmol/L (20-31); Chloride 105 mmol/L (98-107); Triglycerides 179 mg/dL (< 150)
[2024-01-23 11:22] LABS: Albumin 3.8 g/dL (3.2-4.8); Anion Gap 6 (5-15); Aspartate Aminotransferase 96 U/L (13-40); BUN/Creatinine Ratio 11.9 (10.0-20.0); Bilirubin, Total 0.8 mg/dL (0.2-1.0); Blood Urea Nitrogen 12 mg/dL (9-23); Potassium 3.9 mmol/L (3.5-5.1); Sodium 140 mmol/L (136-145); Total Protein 5.9 g/dL (5.7-8.2)
[2024-01-23 11:23] LABS: Glucose 140 mg/dL (74-106)
[2024-01-23] MEDS ORDERED: DOCUSATE SOD 100 MG CAP PO PRN (11:45)
[2024-01-23] MEDS: GOLYTELY 4L KIT PO ONE (18:59)
[2024-01-23] MEDS: AMINO ACID INFUSION IN D10W 1,000 ML IV ONE (20:17)
[2024-01-23] MEDS: SODIUM CHLOR 0.9% PF (SALINE LOCK) 10ML VIAL/SYR IV SCH (22:00)
[2024-01-23] MEDS ORDERED: InsuLIN REG 1unit/0.01ml Soln (100units/ml) SC SCH (22:00)
[2024-01-24] VITALS (8 sets, daily range): BP systolic 108–134; BP diastolic 51–83; PULSE 73–99; RESP 18–20; TEMP 97.4–98.4; O2SAT 93–98
[2024-01-24 07:54] LABS: Alanine Aminotransferase 39 U/L (7-40); Albumin 3.7 g/dL (3.2-4.8); Alkaline Phosphatase 457 U/L (46-116); Anion Gap 9 (5-15); Aspartate Aminotransferase 81 U/L (13-40); BUN/Creatinine Ratio 17.1 (10.0-20.0); Bilirubin, Total 0.8 mg/dL (0.2-1.0); Blood Urea Nitrogen 18 mg/dL (9-23); Calcium 9.7 mg/dL (8.7-10.4); Carbon Dioxide 27 mmol/L (20-31); Chloride 102 mmol/L (98-107); Glucose 200 mg/dL (74-106); Magnesium 1.9 mg/dL (1.6-2.6); Potassium 3.8 mmol/L (3.5-5.1); Sodium 138 mmol/L (136-145); Total Protein 5.6 g/dL (5.7-8.2)
[2024-01-24 08:01] LABS: Basophils # (auto) 0.1 10 ^3/uL (0-0.2); Eosinophils # (auto) 0.2 10 ^3/uL (0-0.8); Eosinophils % (auto) 2.4 % (0.0-7.0); Hematocrit 36.8 % (41.0-53.0); Hemoglobin 11.8 g/dL (13.5-17.5); Lymphocytes # (auto) 1.1 10 ^3/uL (0.4-5.4); Lymphocytes % (auto) 16.8 % (10.0-50.0); Mean Corpuscular Hemoglobin 25.2 pg (28.0-32.0); Mean Corpuscular Hgb Conc. 32.2 g/dL (32.0-36.0); Mean Corpuscular Volume 78.5 fL (80.0-100.0); Monocytes # (auto) 0.8 10 ^3/uL (0-1.3); Monocytes % (auto) 11.2 % (0.0-12.0); Neutrophils # (auto) 4.6 10 ^3/uL (1.6-8.6); Neutrophils % (auto) 68.6 % (37.0-80.0); Platelet Count (auto) 194 10^3/uL (140-450); Red Blood Cells 4.69 10^6/uL (4.5-5.90); Red Cell Distribution Width 18.9 % (11.8-14.3); White Blood Cell 6.7 10^3/uL (4.4-10.8)
[2024-01-24 08:36] LABS: Phosphorus 2.3 mg/dL (2.4-5.1)
[2024-01-24 08:58] LABS: Urine Bacteria None Seen /hpf (None Seen); Urine WBC None Seen /hpf (0 - 3)
[2024-01-24 09:20] LABS: Urine Blood Negative /uL (Negative); Urine Clarity Clear (Clear); Urine Color Light-Yellow (Yellow); Urine Protein, UAD Negative (Negative); Urine Specific Gravity 1.024 (1.001-1.035); Urine Urobilinogen Normal (Negative)
[2024-01-24] MEDS: POTASSIUM PHOSP 22MEQ(15MMOLE) in NS 100 ML IV ONE (17:04)
[2024-01-24] MEDS: NEOMYCIN SULFATE 500 MG TAB PO ONE ×3 (20:25→22:25)
[2024-01-24] MEDS: TPN PER PHARMACY IV NR (20:52)
[2024-01-25] VITALS (10 sets, daily range): BP systolic 97–125; BP diastolic 57–82; PULSE 41–98; RESP 16–20; TEMP 97.4–98.8; O2SAT 95–100
[2024-01-25 06:00] LABS: Alanine Aminotransferase 34 U/L (7-40); Albumin 3.6 g/dL (3.2-4.8); Alkaline Phosphatase 425 U/L (46-116); Anion Gap 7 (5-15); Aspartate Aminotransferase 76 U/L (13-40); BUN/Creatinine Ratio 19.1 (10.0-20.0); Bilirubin, Total 0.7 mg/dL (0.2-1.0); Blood Urea Nitrogen 18 mg/dL (9-23); Carbon Dioxide 27 mmol/L (20-31); Chloride 103 mmol/L (98-107); Glucose 209 mg/dL (74-106); Magnesium 1.9 mg/dL (1.6-2.6); Phosphorus 2.6 mg/dL (2.4-5.1); Potassium 3.6 mmol/L (3.5-5.1); Sodium 137 mmol/L (136-145); Total Protein 5.4 g/dL (5.7-8.2)
[2024-01-25] MEDS ORDERED: fentaNYL CITRATE 100 MCG/2 ML VL ONE (09:04)
[2024-01-25] MEDS ORDERED: ONDANSETRON HCL 4 MG/2 ML VIAL ONE (09:04)
[2024-01-25] MEDS ORDERED: PROPOFOL 10 MG/ML 20 ML IV ONE (09:04)
[2024-01-25] MEDS ORDERED: MIDAZOLAM HCL 2MG/2ML 2ml VIAL (1mg/ml) ONE (09:04)
[2024-01-25] MEDS ORDERED: LIDOCAINE 1% INJ PF 5ML AMP ONE (09:04)
[2024-01-25] MEDS: ceFAZolin 2 GM/D5W100ml 100 ML IV ONE (09:16)
[2024-01-25] MEDS ORDERED: PHENYLEPHRINE HCL 10 MG/ML VL ONE (11:12)
[2024-01-25] MEDS ORDERED: KETOROLAC TROMETH 30 MG/ML 1ML VIAL ONE (12:00)
[2024-01-25] MEDS ORDERED: HYDROmorphone HCL 2 MG/ML VL/or syr ONE (12:09)
[2024-01-25] MEDS ORDERED: SUGAMMADEX 200mg/2ml Vial (100MG/ML) IV ONE (12:14)
[2024-01-25] MEDS ORDERED: HYDROmorphone HCL 2 MG/ML VL/or syr IV PRN ×2 (12:30)
[2024-01-25] MEDS: TPN PER PHARMACY IV NR (20:49)
[2024-01-26] VITALS (7 sets, daily range): BP systolic 98–120; BP diastolic 58–68; PULSE 71–90; RESP 18–20; TEMP 98–98.8; O2SAT 95–98
[2024-01-26] MEDS: HYDROmorphone HCL 2 MG/ML VL/or syr IV PRN (15:25)
[2024-01-26] MEDS: TPN PER PHARMACY IV NR (21:05)
[2024-01-26] MEDS ORDERED: HYDROmorphone HCL 2 MG/ML VL/or syr IV PRN (23:45)
[2024-01-26] MEDS ORDERED: MORPHINE SULFATE INJ 2 MG/ml SYRG IV PRN (23:45)
[2024-01-27] VITALS (8 sets, daily range): BP systolic 122–135; BP diastolic 67–74; PULSE 62–81; RESP 16–21; TEMP 98.1–99; O2SAT 96–99
[2024-01-27 05:58] LABS: Basophils # (auto) 0 10 ^3/uL (0-0.2); Basophils % (auto) 0.4 % (0.0-2.0); Eosinophils # (auto) 0 10 ^3/uL (0-0.8); Eosinophils % (auto) 0.3 % (0.0-7.0); Hematocrit 34.2 % (41.0-53.0); Lymphocytes # (auto) 0.7 10 ^3/uL (0.4-5.4); Lymphocytes % (auto) 8.9 % (10.0-50.0); Mean Corpuscular Hemoglobin 25.3 pg (28.0-32.0); Mean Corpuscular Hgb Conc. 32.2 g/dL (32.0-36.0); Mean Corpuscular Volume 78.6 fL (80.0-100.0); Monocytes # (auto) 0.8 10 ^3/uL (0-1.3); Neutrophils # (auto) 6.7 10 ^3/uL (1.6-8.6); Neutrophils % (auto) 81.4 % (37.0-80.0); Platelet Count (auto) 166 10^3/uL (140-450); Red Blood Cells 4.35 10^6/uL (4.5-5.90); Red Cell Distribution Width 18.7 % (11.8-14.3); White Blood Cell 8.3 10^3/uL (4.4-10.8)
[2024-01-27 06:20] LABS: Alanine Aminotransferase 35 U/L (7-40); Alkaline Phosphatase 392 U/L (46-116); Anion Gap 7 (5-15); BUN/Creatinine Ratio 20.7 (10.0-20.0); Blood Urea Nitrogen 18 mg/dL (9-23); Calcium 9.4 mg/dL (8.7-10.4); Carbon Dioxide 30 mmol/L (20-31); Chloride 109 mmol/L (98-107); Glucose 212 mg/dL (74-106); Magnesium 2.2 mg/dL (1.6-2.6); Potassium 3.8 mmol/L (3.5-5.1)
[2024-01-27 06:21] LABS: Albumin 3.6 g/dL (3.2-4.8); Aspartate Aminotransferase 82 U/L (13-40)
[2024-01-27 06:22] LABS: Bilirubin, Total 0.7 mg/dL (0.2-1.0); Sodium 146 mmol/L (136-145); Total Protein 5.4 g/dL (5.7-8.2)
[2024-01-27] MEDS: LACTATED RINGER'S 1,000 ML IV SCH (08:15)
[2024-01-27] MEDS: POTASSIUM PHOSPHATE 22 MEQ in SODIUM CHL 0.9% 100 ML IV ONE (11:13)
[2024-01-27] MEDS: TPN PER PHARMACY IV NR (20:02)
[2024-01-28] VITALS (8 sets, daily range): BP systolic 118–139; BP diastolic 71–77; PULSE 60–81; RESP 17–20; TEMP 97.6–98.4; O2SAT 91–98
[2024-01-28 06:22] LABS: Alanine Aminotransferase 60 U/L (7-40); Albumin 3.7 g/dL (3.2-4.8); Alkaline Phosphatase 486 U/L (46-116); Anion Gap 6 (5-15); Aspartate Aminotransferase 131 U/L (13-40); BUN/Creatinine Ratio 27.7 (10.0-20.0); Blood Urea Nitrogen 23 mg/dL (9-23); Calcium 10.1 mg/dL (8.7-10.4); Carbon Dioxide 33 mmol/L (20-31); Chloride 108 mmol/L (98-107); Glucose 215 mg/dL (74-106); Magnesium 2.3 mg/dL (1.6-2.6); Potassium 3.6 mmol/L (3.5-5.1); Sodium 147 mmol/L (136-145)
[2024-01-28 06:23] LABS: Bilirubin, Total 0.6 mg/dL (0.2-1.0); Phosphorus 2.3 mg/dL (2.4-5.1); Total Protein 5.7 g/dL (5.7-8.2)
[2024-01-28] MEDS: POTASSIUM PHOSPHATE 22 MEQ in SODIUM CHL 0.9% 100 ML IV ONE (12:24)
[2024-01-28] MEDS: TPN PER PHARMACY IV NR (19:42)
[2024-01-29] VITALS (8 sets, daily range): BP systolic 109–142; BP diastolic 68–84; PULSE 77–108; RESP 16–20; TEMP 96.7–98.4; O2SAT 92–98
[2024-01-29] MEDS ORDERED: HYDROcodone-ACET 5/325MG TAB PO PRN (11:30)
[2024-01-29] MEDS ORDERED: DEXTROSE (50%) 50ML SYRG IV PRN (11:30)
[2024-01-29] MEDS: LIDOCAINE 1% (LOCAL ANESTH.) PF 5ml SDV ID ONE (11:38)
[2024-01-29] MEDS: ONDANSETRON HCL 4 MG/2 ML VIAL IV ONE (11:42)
[2024-01-29] MEDS: InsuLIN REG 1unit/0.01ml Soln (100units/ml) SC SCH (12:00)
[2024-01-29] MEDS: ACCU-CHEK COMFORT CURVE STRIP VI SCH (12:00)
[2024-01-29 14:54] LABS: Alanine Aminotransferase 111 U/L (7-40); Albumin 3.6 g/dL (3.2-4.8); Alkaline Phosphatase 582 U/L (46-116); Anion Gap 8 (5-15); Aspartate Aminotransferase 166 U/L (13-40); Blood Urea Nitrogen 18 mg/dL (9-23); Calcium 9.4 mg/dL (8.7-10.4); Carbon Dioxide 23 mmol/L (20-31); Glucose 292 mg/dL (74-106); Magnesium 1.9 mg/dL (1.6-2.6); Phosphorus 3.1 mg/dL (2.4-5.1); Potassium 3.9 mmol/L (3.5-5.1)
[2024-01-29 14:55] LABS: Bilirubin, Total 0.7 mg/dL (0.2-1.0); Total Protein 5.7 g/dL (5.7-8.2)
[2024-01-29 14:59] LABS: Chloride 98 mmol/L (98-107); Sodium 129 mmol/L (136-145)
[2024-01-30] VITALS (8 sets, daily range): BP systolic 104–133; BP diastolic 69–75; PULSE 65–98; RESP 18–19; TEMP 98–98.5; O2SAT 93–97
[2024-01-30 06:27] LABS: Anion Gap 6 (5-15); Basophils # (auto) 0.1 10 ^3/uL (0-0.2); Calcium 9.6 mg/dL (8.7-10.4); Carbon Dioxide 27 mmol/L (20-31); Chloride 101 mmol/L (98-107); Eosinophils # (auto) 0.3 10 ^3/uL (0-0.8); Hemoglobin 12.1 g/dL (13.5-17.5); Lymphocytes # (auto) 1.5 10 ^3/uL (0.4-5.4); Mean Corpuscular Hemoglobin 25.3 pg (28.0-32.0); Potassium 3.6 mmol/L (3.5-5.1)
[2024-01-30 06:29] LABS: Eosinophils % (auto) 3.2 % (0.0-7.0); Hematocrit 36.5 % (41.0-53.0); Lymphocytes % (auto) 17.1 % (10.0-50.0); Mean Corpuscular Volume 76.7 fL (80.0-100.0); Monocytes # (auto) 0.8 10 ^3/uL (0-1.3); Monocytes % (auto) 9.4 % (0.0-12.0); Neutrophils # (auto) 5.9 10 ^3/uL (1.6-8.6); Neutrophils % (auto) 69.3 % (37.0-80.0); Platelet Count (auto) 152 10^3/uL (140-450); Red Blood Cells 4.76 10^6/uL (4.5-5.90); Red Cell Distribution Width 18.1 % (11.8-14.3); White Blood Cell 8.5 10^3/uL (4.4-10.8)
[2024-01-30 06:30] LABS: Sodium 134 mmol/L (136-145)
[2024-01-30 06:34] LABS: Blood Urea Nitrogen 23 mg/dL (9-23); Glucose 200 mg/dL (74-106)
[2024-01-30] MEDS ORDERED: DEXTROSE (50%) 50ML SYRG IV PRN (15:00)
[2024-01-30] MEDS: ACCU-CHEK COMFORT CURVE STRIP VI SCH (17:52)
[2024-01-30] MEDS: InsuLIN REG 1unit/0.01ml Soln (100units/ml) SC SCH ×2 (17:55→21:35)
[2024-01-31 01:00] VITALS: BP 127/67; PULSE 69; RESP 19; TEMP 98.3; O2SAT 97
[2024-01-31 05:00] VITALS: BP 112/74; PULSE 69; RESP 19; TEMP 98.3; O2SAT 97
[2024-01-31 08:00] VITALS: PULSE 87; RESP 20; O2SAT 92
[2024-01-31 08:50] VITALS: BP 108/78; PULSE 87; RESP 20; TEMP 98; O2SAT 92
[2024-01-31] MEDS ORDERED: HYDR1TAB97 PO (10:30)
[2024-01-31 13:15] VITALS: BP 122/75; PULSE 66; RESP 22; TEMP 98.4; O2SAT 9
[2024-01-31 14:36] VITALS: BP 122/75; PULSE 66; RESP 22; TEMP 98.4; O2SAT 99
== END 2024-01-31 16:00 | disposition home or self-care (01) | DRG 330 ==
LOC: OVERFLOW 18:35 → WEST WING 18:44 → TELE-WESTW 01-23 19:42 → WEST WING 01-29 16:08
PROVIDERS: ADMIT Internal Medicine Cardiovascular Disease; ATTEND Internal Medicine
PROC: 02HV33Z Insertion of Infusion Device into Superior Vena Cava, Percutaneous Approach (ICD-10-PCS; 2024-01-23)
PROC: B548ZZA Ultrasonography of Superior Vena Cava, Guidance (ICD-10-PCS; 2024-01-23)
PROC: 0FB14ZX Excision of Right Lobe Liver, Percutaneous Endoscopic Approach, Diagnostic (ICD-10-PCS; 2024-01-25)
PROC: 3E0436Z Introduction of Nutritional Substance into Central Vein, Percutaneous Approach (ICD-10-PCS; 2024-01-25)
PROC: 0DBN0ZZ Excision of Sigmoid Colon, Open Approach (ICD-10-PCS; principal; 2024-01-25 09:16)
DX: C18.7 Malignant neoplasm of sigmoid colon (principal); C78.7 Secondary malignant neoplasm of liver and intrahepatic bile duct; K62.5 Hemorrhage of anus and rectum; I25.10 Atherosclerotic heart disease of native coronary artery without angina pectoris; E11.9 Type 2 diabetes mellitus without complications; R63.4 Abnormal weight loss; D64.9 Anemia, unspecified; R74.01 Elevation of levels of liver transaminase levels; Z95.0 Presence of cardiac pacemaker; Z95.5 Presence of coronary angioplasty implant and graft; Z83.3 Family history of diabetes mellitus; Z87.828 Personal history of other (healed) physical injury and trauma
CPT/HCPCS: 36415; 36569; 71045; 76937; 80048; 80053; 81001; 82378; 82962; 83036; 83735; 84100; 84478; 85025; 85610; 85730; 86850; 86900; 86901; 97163; G0378; J1815; J1885; J2250; J2405; J2704; J7042; J7131

== ENCOUNTER → 2024-02-14 | Outpatient (CLI) | payer OTHER ==
[~2024-02-14] MED LIST changes: +CETI10CA PO; +GLIP5TAB21 PO; +HYDR1TAB97 PO; +INSU100I33 SC; +READI-CAT 2 (BARIUM SULF)(VANILLA SMOOTHIE) 450ML ONE
== END | disposition home or self-care (01) ==
LOC: Rad HDHVI 09:50
PROVIDERS: ATTEND Internal Medicine Cardiovascular Disease
DX: R16.0 Hepatomegaly, not elsewhere classified (principal); N32.89 Other specified disorders of bladder; R10.9 Unspecified abdominal pain
CPT/HCPCS: 74176

== ENCOUNTER 2024-03-19 11:21 | Inpatient (IN) | payer OTHER, MEDICAID ==
[~2024-03-19] VITALS: Ht 185.4 cm; Wt 85.5 kg
[~2024-03-19 11:21] MED LIST changes: -READI-CAT 2 (BARIUM SULF)(VANILLA SMOOTHIE) 450ML ONE
--- NOTE | 2024-03-19 12:26 | ED.PDOC ---
History of Present Illness HPI Comments 58y M who presents to the ED for chief complaint of abnormal labs. Pt states he was for to ER by his oncologist Dr. Nevarez for evaluation for elevated liver function tests. Patient states he has a history of colon CA with liver metastases and was being seen by his oncologist today for chemotherapy. Pt presented paperwork which states oncologist recommends further evaluation of elevated liver enzymes and requests CT of abdomen and pelvis. Pt presented labs which showed total bilirubin of 3.9, alkaline phosphatase 1103, AST 210, and ALT 198. Pt otherwise denies any nausea, vomiting, diarrhea, fever, cough, chills, dysuria, headache, dizziness, chest pain or shortness of breath. Pt otherwise denies any other symptoms at this time. Chief Complaint: Abnormal LAB's Time Seen by MD: 12:24 Reviewed Notes: Medications, Allergies Allergies: Coded Allergies: NO KNOWN ALLERGIES (Unverified , 07/26/22) Home Meds Active Scripts Hydrocodone-Acetaminophen (Hydrocodone/Acetaminophen 5-325 mg) 1 Tab Tab, 1 TAB PO TIDP PRN for 7 Days, #21 TAB Prov:JACKY ORTIZ MD 01/31/24 Reported Medications Insulin Degludec (Tresiba) 100 Unit/Ml Inj, 100 UNIT SC, INJ 01/22/24 Cetirizine Hcl (Zyrtec Allergy) 10 Mg Cap, 5 MG PO DAILY, CAP 01/22/24 Glipizide (Glipizide) 5 Mg Tab, 5 MG PO DAILY for 30 Days, MG 01/22/24 Pravastatin Sodium (PRAVACHOL TABLET) 20 Mg Tb, 2 TAB PO DAILY, #30 TAB 5 Refills 01/22/24 Semaglutide (Ozempic) 2 Mg/3 Ml Inj, 0.25 MG SC ONCE WEEKLY, INJ 11/15/22 Empagliflozin (Jardiance) 25 Mg Tab, 25 MG PO DAILY, TAB 11/14/22 Gabapentin (Gabapentin) 600 Mg Tab, 600 MG PO TID for 30 Days, MG 11/14/22 Finerenone (Kerendia) 10 Mg Tab, 10 MG PO DAILY, TAB 11/14/22 Aspirin (ASPIRIN 81) 81 Mg Tab, 81 MG OR DAILY, TAB 11/14/22 Pravastatin Sodium (PRAVACHOL TABLET) 20 Mg Tb, 20 MG PO QPM, TAB 11/14/22 Insulin Aspart (Novolog) 100 Unit/Ml Inj, UNIT IJ ACHS, INJ 11/14/22 Insulin Detemir (Levemir) Inj, UNIT SC HS, INJ 11/14/22 Information Source: Patient Mode of Arrival: Ambulatory Past Medical History PAST MEDICAL HISTORY: CAD, HTN Past Medical History (Other): colon cancer with liver mets Surgical History: Pacemaker, PTCA Family History Family History: Reviewed,noncontributory to illness Social History Smoker: Non-Smoker Alcohol: Denies ETOH Use Drugs: Denies Drug Use Lives In: Home Constitutional: denies: chills, diaphoresis, fatigue, fever, malaise, sweats, weakness, others EENTM: denies: blurred vision, double vision, ear bleeding, ear discharge, ear drainage, ear pain, ear ringing, eye pain, eye redness, hearing loss, mouth pain, mouth swelling, nasal discharge, nose bleeding, nose congestion, nose pain, photophobia, tearing, throat pain, throat swelling, voice changes, others Respiratory: denies: cough, hemoptysis, orthopnea, SOB at rest, shortness of breath, SOB with excertion, stridor, wheezing, others Cardiovascular: denies: chest pain, dizzy spells, diaphoresis, Dyspnea on exertion, edema, irregular heart beat, left arm pain, lightheadedness, palpitations, PND, syncope, others Gastrointestinal: denies: abdomen distended, abdominal pain, blood streaked bowels, constipated, diarrhea, dysphagia, difficulty swallowing, hematemesis, melena, nausea, poor appetite, poor fluid intake, rectal bleeding, rectal pain, vomiting, others Genitourinary: denies: burning, dysuria, flank pain, frequency, hematuria, incontinence, penile discharge, penile sore, pain, testicle pain, testicle swelling, urgency, others Neurological: denies: dizziness, fainting, headache, left sided numbness, left sided weakness, numbness, paresthesia, pre-existing deficit, right sided numbness, right sided weakness, seizure, speech problems, tingling, tremors, weakness, others Musculoskeletal: denies: back pain, gout, joint pain, joint swelling, muscle pain, muscle stiffness, neck pain, others Integumetry: denies: bruises, change in color, change in hair/nails, dryness, laceration, lesions, lumps, rash, wounds, others Allergic/Immunocompromised: denies: Difficulty Healing, Frequent Infections, Hives, Itching, others Hematologic/Lymphatic: denies: anemia, blood clots, easy bleeding, easy bruising, swollen glands, others Endocrine: denies: excessive hunger, excessive sweating, excessive thirst, excessive urination, flushing, intolerance to cold, intolerance to heat, unexplained weight gain, unexplained weight loss, others Psychiatric: denies: anxiety, bipolar disorder, depression, hopeless, panic disorder, schizophrenia, sleepless, suicidal, others All Other Systems: Reviewed and Negative Physical Exam General Appearance: No Apparent Distress, Thin HEENT: Other (Pupils symmetric, no facial asymmetry, moist mucous membranes) Neck: Full Range of Motion, Normal Inspection Respiratory: Lungs Clear, No Accessory Muscle Use, No Respiratory Distress, Normal Breath Sounds Cardiovascular: No Edema, No JVD, Regular Rate/Rhythm Breast Exam: Deferred Gastrointestinal: Non Tender, Soft Genitalia: Deferred Pelvic: Deferred Rectal: Deferred Extremities: Normal inspection, Normal range of motion, Non-tender, No pedal edema Neurologic: Alert (Oriented x4), Other (Ambulatory without difficulty. No gross focal deficit.) Cerebellar Function: NOT DONE Reflexes: NOT DONE Skin: Dry, Normal Color, Warm Lymphatic: NOT DONE Was a procedure done? Was a procedure done?: No Differential Dx Considerations may include: Hepatitis, worsening/enlarging metastatic disease, biliary obstruction, among others X-Ray, Labs, Meds, VS Vital Signs Date Time Temp Pulse Resp B/P (MAP) Pulse Ox O2 Delivery O2 Flow Rate FiO2 03/19/24 12:15 97.5 114 18 120/89 (99) 98 Lab Test 03/19/24 13:11 03/19/24 12:30 03/19/24 11:24 Range/Units Ammonia < 10 L 11-32 umol/L Urine Color Light-yellow Yellow Urine Clarity Clear Clear Urine pH 5.5 5.0-9.0 Urine Specific [place] 1.025 1.001-1.035 Urine Protein Negative Negative Urine Ketones Trace Negative Urine Blood Negative Negative /uL Urine Nitrite Negative Negative Urine Bilirubin Negative Negative Urine Urobilinogen Normal Negative mg/dL Urine Leukocyte Esterase Negative Negative /uL Urine RBC 1 0 - 3 /hpf Urine WBC 1 0 - 3 /hpf Urine Squamous Epithelial Cells None seen <5 /hpf Urine Bacteria None seen None Seen /hpf Urine Glucose 4+ H Normal mg/dL White Blood Count 17.2 H 4.4-10.8 10^3/uL Red Blood Count 4.64 4.5-5.90 10^6/uL Hemoglobin 12.2 L 13.5-17.5 g/dL Hematocrit 38.0 L 41.0-53.0 % Mean Corpuscular Volume 81.8 80.0-100.0 fL Mean Corpuscular Hemoglobin 26.2 L 28.0-32.0 pg Mean Corpuscular Hemoglobin Concent 32.1 32.0-36.0 g/dL Red Cell Distribution Width 21.3 H 11.8-14.3 % Platelet Count 143 140-450 10^3/uL Mean Platelet Volume 10.7 6.9-10.8 fL Neutrophils (%) (Auto) 84.3 H 37.0-80.0 % Lymphocytes (%) (Auto) 10.1 10.0-50.0 % Monocytes (%) (Auto) 4.2 0.0-12.0 % Eosinophils (%) (Auto) 0.8 0.0-7.0 % Basophils (%) (Auto) 0.6 0.0-2.0 % Neutrophils # (Auto) 14.5 H 1.6-8.6 10 ^3/uL Lymphocytes # (Auto) 1.7 0.4-5.4 10 ^3/uL Monocytes # (Auto) 0.7 0-1.3 10 ^3/uL Eosinophils # (Auto) 0.1 0-0.8 10 ^3/uL Basophils # (Auto) 0.1 0-0.2 10 ^3/uL Nucleated Red Blood Cells 0.1 % Sodium Level 129 L 136-145 mmol/L Potassium Level 3.8 3.5-5.1 mmol/L Chloride Level 90 L 98-107 mmol/L Carbon Dioxide Level 28 20-31 mmol/L Anion Gap 11 5-15 Blood Urea Nitrogen 18 9-23 mg/dL Creatinine 1.18 0.700-1.30 mg/dL Glomerular Filtration Rate Calc 72 >90 mL/min BUN/Creatinine Ratio 15.3 10.0-20.0 Serum Glucose 414 *H 74-106 mg/dL Calcium Level 10.6 H 8.7-10.4 mg/dL Total Bilirubin 2.3 H 0.2-1.0 mg/dL Aspartate Amino Transferase (AST) 92 H 13-40 U/L Alanine Aminotransferase (ALT) 109 H 7-40 U/L Alkaline Phosphatase 975 H 46-116 U/L Total Protein 7.1 5.7-8.2 g/dL Albumin 4.7 3.2-4.8 g/dL Lipase 66 H 12-53 U/L [place] [id number] Ph: [phone] DIAGNOSTIC IMAGING Diagnostic Imaging Report : [id number] Signed PATIENT: EMERITA RICHARDSON ACCT: [id number] UNIT: [id number] : 1965 LOC: ER ROOM / BED: / AGE / SEX: 58 / M ADM STATUS: REG ER SERVICE 1152 ORDERING PHYSICIAN: PORFIRIO ANNE MD PROCEDURE(s): ABPL - CT AB PEL WO CON-NO ORAL OR IV REASON: increased LFts h/o CA with liver mets ORDER NUMBER(s): [id number], ACCESSION NUMBER(s): [id number] CLINICAL INFORMATION: 58 years old, Male; increased liver function tests. History of cancer with liver metastases. TECHNIQUE: Axial CT images of the abdomen and pelvis were obtained without IV contrast. Coronal and sagittal reformatted images were obtained, reviewed, and stored. Evaluation of the parenchymal organs is limited without IV contrast. Evaluation of the bowel and mesentery is limited without oral contrast. All CT scans at this medical facility are performed using dose modulation techniques as appropriate to a performed exam including the following: Automated exposure control was utilized; adjustment of the MA and/or KV according to patient size; and use of iterative reconstruction technique. CTDIvol = 8.33, 0.07, 0.07 mGy DLP = 504.94 mGy-cm COMPARISON: CT CT AB PEL WITH ORAL CON ONLY on DOS: 02/14/24, CT CT AB PEL WO CON-NO ORAL OR IV on DOS: 12/05/22, CT CT AB PEL WITH IV CON ONLY on DOS: 11/29/22 FINDINGS: Lung bases: Lung bases are clear. Liver: Extensive liver masses again noted, not optimally evaluated on noncontrast enhanced exam, with the largest involving portions of the caudate lobe, right hepatic lobe, and left hepatic lobe measuring up to 10.6 cm in greatest dimension, slightly better seen compared to the prior exam, although likely minimally changed in overall size. A lesion in the posterior right hepatic lobe measures approximately 9.4 cm in greatest dimension. Lesion 4 anteriorly inferiorly in the right hepatic lobe measures up to 7.6 cm. Biliary: No calcified gallstones or biliary ductal dilatation. Spleen: Unremarkable. Pancreas: Moderately to markedly atrophic pancreas. There are pancreatic calcifications, may be sequela of chronic pancreatitis. Adrenal glands: Unremarkable. No mass. Kidneys: No hydronephrosis. No renal or ureteral calculi. Aorta/Vascular: Scattered atherosclerotic calcification. No abdominal aortic aneurysm. Retroperitoneum: Prominent para-aortic and interaortocaval lymph nodes, with the largest measuring up to 1 cm in short axis dimension. Bowel/mesentery: No small bowel obstruction. Appendix is not visualized, may be surgically absent with postsurgical changes visualized adjacent to the cecum. There is an ovoid mass in the right hemipelvis measuring up to 3.5 cm in greatest dimension. There are fatty components of the mass. The masses in close proximity to a surgical anastomosis in the rectum. Moderate to large amount of stool throughout the colon. Lymph node adjacent to the rectum measures up to 1 cm in short axis dimension. Pelvic organs: Grossly unremarkable. Bladder: Mild circumferential thickening of the bladder wall. Abdominal wall: No mass or hernia. Bones: No acute fracture or suspicious intraosseous lesion. IMPRESSION: 1. Multiple liver lesions as described above, suspected metastatic disease, grossly similar compared to the prior exam, although limited evaluation on noncontrast enhanced exam. 2. Prominent para-aortic lymph nodes rectal lymph node, suspicious for lalit metastatic disease. 3. Ovoid mass adjacent to postsurgical changes in the rectum, with fat density associated with the mass. Differential considerations include sequela of prior contained perforation, fat necrosis, focal intraperitoneal fat infarction, or neoplasm. 4. Additional findings as detailed above. ATED BY: MICHAEL ELIZONDO DO DICTATED DATE/TIME: 03/19/24 1306 SIGNED BY: MICHAEL ELIZONDO DO SIGNED DATE/TIME: 03/19/24 1306 CC: X-Ray, Labs, Meds, VS Comment 58-year-old male with a history of hypertension, diabetes, CAD, colon cancer with liver metastases referred by oncologist for elevated LFTs. CT abdomen and pelvis was requested. Vitals remarkable for temperature 97.5, heart rate 114 Exam unremarkable Rhythm strip independently interpreted by me: Sinus tach, rate 112, no ectopy. CT abdomen and pelvis IMPRESSION: 1. Multiple liver lesions as described above, suspected metastatic disease, grossly similar compared to the prior exam, although limited evaluation on noncontrast enhanced exam. 2. Prominent para-aortic lymph nodes rectal lymph node, suspicious for lalit metastatic disease. 3. Ovoid mass adjacent to postsurgical changes in the rectum, with fat density associated with the mass. Differential considerations include sequela of prior contained perforation, fat necrosis, focal intraperitoneal fat infarction, or neoplasm. 4. Additional findings as detailed above. CBC remarkable for WBC 17.2, CMP remarkable for sodium 129, chloride 90, glucose 414, normal anion gap, total bilirubin 2.3, AST 92, ALT 109, alkaline phos 975, lipase 66 UA 4+ glucose Patient treated with the following in the ED: 1 L 0.9 normal saline IV bolus, regular insulin 4 units IV. Plan is to admit the patient for glucose control, electrolyte correction and Oncology evaluation. Time of 1ST Reevaluation: 13:00 Reevaluation 1ST: Unchanged Time of 2ND Reevaluation: 13:52 Reevaluation 2ND: Unchanged Patient Education/Counseling: Diagnosis, Treatment Family Education/Counseling: No Family Present Departure 1 Departure Time of Disposition: 13:52 Impression: Primary Impression: Hyperglycemia Additional Impressions: Transaminitis Electrolyte imbalance Disposition: 09 ADMITTED INPATIENT Admit to: Med Surg Condition: Fair Critical Care Note Critical Care Time?: No Stability Stability form required: No Heart Score Heart Score: Heart Score Response (Comments) Value History N/A 0 EKG N/A 0 Age N/A 0 Risk Factors N/A 0 Troponin N/A 0 Total 0 I personally scribed for PORFIRIO ANNE MD ([email or web address]) on 03/19/24 at 12:26. Electronically submitted by Brian Stovall (TOBY). I personally scribed for PORFIRIO ANNE MD ([email or web address]) on 03/19/24 at 13:44. Electronically submitted by Brian Stovall ([email or web address]). PORFIRIO ANNE MD Mar 19, 2024 12:26
[2024-03-19 12:38] LABS: Urine Bacteria None Seen /hpf (None Seen)
[2024-03-19 12:49] LABS: Basophils # (auto) 0.1 10 ^3/uL (0-0.2); Eosinophils # (auto) 0.1 10 ^3/uL (0-0.8); Eosinophils % (auto) 0.8 % (0.0-7.0); Lymphocytes # (auto) 1.7 10 ^3/uL (0.4-5.4); Monocytes # (auto) 0.7 10 ^3/uL (0-1.3); Neutrophils # (auto) 14.5 10 ^3/uL (1.6-8.6); Nucleated Red Blood Cells % 0.1 %; White Blood Cell 17.2 10^3/uL (4.4-10.8)
[2024-03-19 12:51] LABS: Urine Blood Negative /uL (Negative); Urine Clarity Clear (Clear); Urine Color Light-Yellow (Yellow); Urine Protein, UAD Negative (Negative); Urine Specific Gravity 1.025 (1.001-1.035); Urine Urobilinogen Normal (Negative); Urine WBC 1 /hpf (0 - 3); Urine pH 5.5 (5.0-9.0)
[2024-03-19 12:52] LABS: Basophils % (auto) 0.6 % (0.0-2.0); Hemoglobin 12.2 g/dL (13.5-17.5); Lymphocytes % (auto) 10.1 % (10.0-50.0); Mean Corpuscular Hemoglobin 26.2 pg (28.0-32.0); Mean Corpuscular Hgb Conc. 32.1 g/dL (32.0-36.0); Mean Corpuscular Volume 81.8 fL (80.0-100.0); Monocytes % (auto) 4.2 % (0.0-12.0); Neutrophils % (auto) 84.3 % (37.0-80.0); Platelet Count (auto) 143 10^3/uL (140-450); Red Blood Cells 4.64 10^6/uL (4.5-5.90); Red Cell Distribution Width 21.3 % (11.8-14.3)
[2024-03-19 13:08] LABS: Alanine Aminotransferase 109 U/L (7-40); Albumin 4.7 g/dL (3.2-4.8); Alkaline Phosphatase 975 U/L (46-116); Anion Gap 11 (5-15); Aspartate Aminotransferase 92 U/L (13-40); BUN/Creatinine Ratio 15.3 (10.0-20.0); Blood Urea Nitrogen 18 mg/dL (9-23); Calcium 10.6 mg/dL (8.7-10.4); Carbon Dioxide 28 mmol/L (20-31); Chloride 90 mmol/L (98-107); Lipase 66 U/L (12-53); Potassium 3.8 mmol/L (3.5-5.1); Sodium 129 mmol/L (136-145)
--- NOTE | 2024-03-19 13:08 | DVH ---
CLINICAL INFORMATION: 58 years old, Male; increased liver function tests. History of cancer with l iver metastases. TECHNIQUE: Axial CT images of the abdomen and pelvis were obtained without IV contrast. Coronal and sagittal reformatted images were obtained, reviewed, and stored. Evaluation of the parenchymal organs is limited without IV contrast. Evaluation of the bowel and mesentery is limited without oral contra st. All CT scans at this medical facility are performed using dose modulation techniques as appropria te to a performed exam including the following: Automated exposure control was utilized; adjustment o f the MA and/or KV according to patient size; and use of iterative reconstruction technique. CTDIvol = 8.33, 0.07, 0.07 mGy DLP = 504.94 mGy-cm COMPARISON: CT CT AB PEL WITH ORAL CON ONLY on DOS: 02/14/24, CT CT AB PEL WO CON-NO ORAL OR IV on DO S: 12/05/22, CT CT AB PEL WITH IV CON ONLY on DOS: 11/29/22 FINDINGS: Lung bases: Lung bases are clear. Liver: Extensive liver masses again noted, not optimally evaluated on noncontrast enhanced exam, wit h the largest involving portions of the caudate lobe, right hepatic lobe, and left hepatic lobe measu ring up to 10.6 cm in greatest dimension, slightly better seen compared to the prior exam, although l ikely minimally changed in overall size. A lesion in the posterior right hepatic lobe measures approx imately 9.4 cm in greatest dimension. Lesion 4 anteriorly inferiorly in the right hepatic lobe measur es up to 7.6 cm. Biliary: No calcified gallstones or biliary ductal dilatation. Spleen: Unremarkable. Pancreas: Moderately to markedly atrophic pancreas. There are pancreatic calcifications, may be seque la of chronic pancreatitis. Adrenal glands: Unremarkable. No mass. Kidneys: No hydronephrosis. No renal or ureteral calculi. Aorta/Vascular: Scattered atherosclerotic calcification. No abdominal aortic aneurysm. Retroperitoneum: Prominent para-aortic and interaortocaval lymph nodes, with the largest measuring up to 1 cm in short axis dimension. Bowel/mesentery: No small bowel obstruction. Appendix is not visualized, may be surgically absent wit h postsurgical changes visualized adjacent to the cecum. There is an ovoid mass in the right hemipelv is measuring up to 3.5 cm in greatest dimension. There are fatty components of the mass. The masses i n close proximity to a surgical anastomosis in the rectum. Moderate to large amount of stool througho ut the colon. Lymph node adjacent to the rectum measures up to 1 cm in short axis dimension. Pelvic organs: Grossly unremarkable. Bladder: Mild circumferential thickening of the bladder wall. Abdominal wall: No mass or hernia. Bones: No acute fracture or suspicious intraosseous lesion. IMPRESSION: 1. Multiple liver lesions as described above, suspected metastatic disease, grossly similar compared to the prior exam, although limited evaluation on noncontrast enhanced exam. 2. Prominent para-aortic lymph nodes rectal lymph node, suspicious for lalit metastatic disease. 3. Ovoid mass adjacent to postsurgical changes in the rectum, with fat density associated with the ma ss. Differential considerations include sequela of prior contained perforation, fat necrosis, focal i ntraperitoneal fat infarction, or neoplasm. 4. Additional findings as detailed above.
[2024-03-19 13:09] LABS: Bilirubin, Total 2.3 mg/dL (0.2-1.0); Total Protein 7.1 g/dL (5.7-8.2)
[2024-03-19 13:11] LABS: Glucose 414 mg/dL (74-106)
[2024-03-19 16:41] VITALS: PULSE 96; RESP 18; O2SAT 98
[2024-03-19] MEDS: SODIUM CHLORIDE 0.9% 1,000 ML IV ONE (16:50)
[2024-03-19] MEDS: InsuLIN REG 1unit/0.01ml Soln (100units/ml) IV ONE (16:55)
--- NOTE | 2024-03-19 17:02 | DVHHP2 ---
History of Present Illness Reason for Visit: Elevated LFTs History of Present Illness Celestino Garcia is a 58YO M who has a pmHx of CA, CAD, hypertension, pacemaker, PTCA, and colon cancer with liver Mets who was advised by his oncologist to go to the ED for elevated LFTs and requests CT abdomen and pelvis. Cardiovascular: CAD, HTN Past Medical History colon cancer with liver mets Pacemaker PTCA Smoke: No ALCOHOL: none Drugs: None Lives: with Family Review of Systems Constitutional: No: Fever, Chills, Sweats, Weakness, Malaise, Other Eyes: No: Pain, Vision change, Conjunctivae inflammation, Eyelid inflammation, Other, Redness ENT: No: Ear pain, Ear discharge, Nose pain, Nose discharge, Nose congestion, Mouth pain, Mouth swelling, Throat pain, Throat swelling, Other Respiratory: No: Cough, Dry, Shortness of breath, SOB with excertion, Wheezing, Hemoptysis, Pleuritic Pain, Sputum, Wheezing, Other Cardiovascular: No: Chest Pain, Palpitations, Orthopnea, Paroxysmal Noc. Dyspnea, Edema, Lt Headedness, Other Gastrointestinal: No: Nausea, Vomiting, Abdominal Pain, Diarrhea, Constipation, Melena, Hematochezia, Other Genitourinary: No Dysuria, No Frequency, No Incontinence, No Hematuria, No Retention, No Other Musculoskeletal: No: other, neck pain, shoulder pain, arm pain, back pain, hand pain, leg pain, foot pain Skin: No: Rash, Lesions, Jaundice, Bruising, Other Neurological: No: Weakness, Numbness, Incoordination, Change in speech, Confusion, Seizures, Other Allergies: Coded Allergies: NO KNOWN ALLERGIES (Unverified , 07/26/22) Exam Vital Signs Vital Signs Date Time Temp Pulse Resp B/P (MAP) Pulse Ox O2 Delivery O2 Flow Rate FiO2 03/19/24 16:41 96 18 98 Room Air* 0 21 03/19/24 16:41 97.3 129/82 (98) 97.3 General Appearance: Alert, Oriented X3, Cooperative, No acute distress HEENT: Atraumatic, PERRLA, EOMI, Mucous membr. moist/pink Respiratory: Clear to auscultation, Normal air movement Cardiovascular: Regular rate, Normal S1, Normal S2, No murmurs Abdominal: Normal bowel sounds, Soft, No tenderness, No hepatospenomegaly, No masses Extremities: No clubbing, No cyanosis, No edema, Normal pulses, No tenderness/swelling Skin: No rashes, No breakdown, No significant lesion Neuro: Normal gait, Normal speech, Strength at 5/5 X4 ext, Normal tone, Sensation intact Psych/Mental Status: Mental status NL, Mood NL Labs/Xrays Labs Test 03/19/24 13:11 03/19/24 12:30 03/19/24 11:24 Range/Units Ammonia < 10 L 11-32 umol/L Urine Color Light-yellow Yellow Urine Clarity Clear Clear Urine pH 5.5 5.0-9.0 Urine Specific [place] 1.025 1.001-1.035 Urine Protein Negative Negative Urine Ketones Trace Negative Urine Blood Negative Negative /uL Urine Nitrite Negative Negative Urine Bilirubin Negative Negative Urine Urobilinogen Normal Negative mg/dL Urine Leukocyte Esterase Negative Negative /uL Urine RBC 1 0 - 3 /hpf Urine WBC 1 0 - 3 /hpf Urine Squamous Epithelial Cells None seen <5 /hpf Urine Bacteria None seen None Seen /hpf Urine Glucose 4+ H Normal mg/dL White Blood Count 17.2 H 4.4-10.8 10^3/uL Red Blood Count 4.64 4.5-5.90 10^6/uL Hemoglobin 12.2 L 13.5-17.5 g/dL Hematocrit 38.0 L 41.0-53.0 % Mean Corpuscular Volume 81.8 80.0-100.0 fL Mean Corpuscular Hemoglobin 26.2 L 28.0-32.0 pg Mean Corpuscular Hemoglobin Concent 32.1 32.0-36.0 g/dL Red Cell Distribution Width 21.3 H 11.8-14.3 % Platelet Count 143 140-450 10^3/uL Mean Platelet Volume 10.7 6.9-10.8 fL Neutrophils (%) (Auto) 84.3 H 37.0-80.0 % Lymphocytes (%) (Auto) 10.1 10.0-50.0 % Monocytes (%) (Auto) 4.2 0.0-12.0 % Eosinophils (%) (Auto) 0.8 0.0-7.0 % Basophils (%) (Auto) 0.6 0.0-2.0 % Neutrophils # (Auto) 14.5 H 1.6-8.6 10 ^3/uL Lymphocytes # (Auto) 1.7 0.4-5.4 10 ^3/uL Monocytes # (Auto) 0.7 0-1.3 10 ^3/uL Eosinophils # (Auto) 0.1 0-0.8 10 ^3/uL Basophils # (Auto) 0.1 0-0.2 10 ^3/uL Nucleated Red Blood Cells 0.1 % Sodium Level 129 L 136-145 mmol/L Potassium Level 3.8 3.5-5.1 mmol/L Chloride Level 90 L 98-107 mmol/L Carbon Dioxide Level 28 20-31 mmol/L Anion Gap 11 5-15 Blood Urea Nitrogen 18 9-23 mg/dL Creatinine 1.18 0.700-1.30 mg/dL Glomerular Filtration Rate Calc 72 >90 mL/min BUN/Creatinine Ratio 15.3 10.0-20.0 Serum Glucose 414 *H 74-106 mg/dL Calcium Level 10.6 H 8.7-10.4 mg/dL Total Bilirubin 2.3 H 0.2-1.0 mg/dL Aspartate Amino Transferase (AST) 92 H 13-40 U/L Alanine Aminotransferase (ALT) 109 H 7-40 U/L Alkaline Phosphatase 975 H 46-116 U/L Total Protein 7.1 5.7-8.2 g/dL Albumin 4.7 3.2-4.8 g/dL Lipase 66 H 12-53 U/L CLINICAL INFORMATION: 58 years old, Male; increased liver function tests. History of cancer with liver metastases. FINDINGS: Lung bases: Lung bases are clear. Liver: Extensive liver masses again noted, not optimally evaluated on noncontrast enhanced exam, with the largest involving portions of the caudate lobe, right hepatic lobe, and left hepatic lobe measuring up to 10.6 cm in greatest dimension, slightly better seen compared to the prior exam, although likely minimally changed in overall size. A lesion in the posterior right hepatic lobe measures approximately 9.4 cm in greatest dimension. Lesion 4 anteriorly inferiorly in the right hepatic lobe measures up to 7.6 cm. Biliary: No calcified gallstones or biliary ductal dilatation. Spleen: Unremarkable. Pancreas: Moderately to markedly atrophic pancreas. There are pancreatic calcifications, may be sequela of chronic pancreatitis. Adrenal glands: Unremarkable. No mass. Kidneys: No hydronephrosis. No renal or ureteral calculi. Aorta/Vascular: Scattered atherosclerotic calcification. No abdominal aortic aneurysm. Retroperitoneum: Prominent para-aortic and interaortocaval lymph nodes, with the largest measuring up to 1 cm in short axis dimension. Bowel/mesentery: No small bowel obstruction. Appendix is not visualized, may be surgically absent with postsurgical changes visualized adjacent to the cecum. There is an ovoid mass in the right hemipelvis measuring up to 3.5 cm in greatest dimension. There are fatty components of the mass. The masses in close proximity to a surgical anastomosis in the rectum. Moderate to large amount of stool throughout the colon. Lymph node adjacent to the rectum measures up to 1 cm in short axis dimension. Pelvic organs: Grossly unremarkable. Bladder: Mild circumferential thickening of the bladder wall. Abdominal wall: No mass or hernia. Bones: No acute fracture or suspicious intraosseous lesion. IMPRESSION: 1. Multiple liver lesions as described above, suspected metastatic disease, grossly similar compared to the prior exam, although limited evaluation on noncontrast enhanced exam. 2. Prominent para-aortic lymph nodes rectal lymph node, suspicious for lalit metastatic disease. 3. Ovoid mass adjacent to postsurgical changes in the rectum, with fat density associated with the mass. Differential considerations include sequela of prior contained perforation, fat necrosis, focal intraperitoneal fat infarction, or neoplasm. 4. Additional findings as detailed above. Assessment/Plan Assessment/Plan Assessment: DM uncontrolled Transaminitis Hx of colon CA with liver mets Plan: Admit to med surg IV fluids Pain management IV antibiotics Antiemetics GI prophylaxis CT abdomen and pelvis noted ISS and Accuchecks HgbA1C UA Diet as tolerated Monitor labs Home medications reconciled Plan discussed with: Patient Date of Service: Mar 19, 2024 Billing Provider: BRIGIDA HUNTER Common Visit Codes: [id number] INP/OBS CARE (MOD) BRIGIDA HUNTER Mar 19, 2024 17:02
[2024-03-19] MEDS ORDERED: DEXTROSE (50%) 50ML SYRG IV PRN (17:15)
[2024-03-19] MEDS ORDERED: metroNIDAZOLE 500MG/100ML 100 ML IV ONE (17:15)
[2024-03-19] MEDS ORDERED: LORazepam 0.5 MG TAB PO PRN (17:30)
[2024-03-19] MEDS ORDERED: DOCUSATE SOD 100 MG CAP PO PRN (17:30)
[2024-03-19] MEDS: SODIUM CHLORIDE 0.9% 1,000 ML IV SCH (17:30)
[2024-03-19] MEDS ORDERED: HYDROcodone-ACET 5/325MG TAB PO PRN (17:30)
[2024-03-19] MEDS ORDERED: MORPHINE SULFATE INJ 2 MG/ml SYRG IV PRN (17:30)
[2024-03-19] MEDS ORDERED: ONDANSETRON HCL 4 MG/2 ML VIAL IV PRN (17:30)
[2024-03-19] MEDS: PRAVASTATIN SODIUM 20 MG TAB PO SCH (18:00)
[2024-03-19] MEDS ORDERED: metroNIDAZOLE 500MG/100ML 100 ML IV SCH (18:00)
[2024-03-19 20:40] VITALS: PULSE 85; RESP 19; O2SAT 99
[2024-03-19 21:50] VITALS: BP 130/79; PULSE 85; RESP 19; TEMP 98.1; O2SAT 99
[2024-03-19] MEDS: GABAPENTIN 300 MG CAP PO SCH (22:00)
[2024-03-19] MEDS: metroNIDAZOLE 500MG/100ML 100 ML IV SCH (22:01)
[2024-03-19] MEDS: InsuLIN REG 1unit/0.01ml Soln (100units/ml) SC SCH (23:38)
[2024-03-20] VITALS (8 sets, daily range): BP systolic 100–121; BP diastolic 61–68; PULSE 63–71; RESP 16–19; TEMP 97.7–98.6; O2SAT 94–99
[2024-03-20] MEDS: ACCU-CHEK COMFORT CURVE STRIP VI SCH ×2 (00:11→16:22)
[2024-03-20 07:01] LABS: Albumin 3.7 g/dL (3.2-4.8); Anion Gap 9 (5-15); BUN/Creatinine Ratio 23.7 (10.0-20.0); Blood Urea Nitrogen 18 mg/dL (9-23); Calcium 9.8 mg/dL (8.7-10.4); Carbon Dioxide 28 mmol/L (20-31); Lipase 48 U/L (12-53)
[2024-03-20 07:04] LABS: Alanine Aminotransferase 78 U/L (7-40); Alkaline Phosphatase 732 U/L (46-116); Aspartate Aminotransferase 78 U/L (13-40); Bilirubin, Total 1.5 mg/dL (0.2-1.0); Chloride 98 mmol/L (98-107); Glucose 146 mg/dL (74-106); Potassium 3.2 mmol/L (3.5-5.1); Sodium 135 mmol/L (136-145); Total Protein 5.5 g/dL (5.7-8.2)
[2024-03-20 07:17] LABS: Basophils # (auto) 0.1 10 ^3/uL (0-0.2); Eosinophils # (auto) 0.2 10 ^3/uL (0-0.8); Eosinophils % (auto) 1.6 % (0.0-7.0); Lymphocytes # (auto) 1.7 10 ^3/uL (0.4-5.4); Nucleated Red Blood Cells % 0.1 %
[2024-03-20 07:19] LABS: Basophils % (auto) 0.7 % (0.0-2.0); Hemoglobin 10.6 g/dL (13.5-17.5); Lymphocytes % (auto) 13.3 % (10.0-50.0); Mean Corpuscular Hemoglobin 25.8 pg (28.0-32.0); Mean Corpuscular Volume 80.5 fL (80.0-100.0); Monocytes # (auto) 0.6 10 ^3/uL (0-1.3); Monocytes % (auto) 4.8 % (0.0-12.0); Neutrophils # (auto) 10.1 10 ^3/uL (1.6-8.6); Neutrophils % (auto) 79.6 % (37.0-80.0); Platelet Count (auto) 116 10^3/uL (140-450); Red Cell Distribution Width 22.4 % (11.8-14.3); White Blood Cell 12.7 10^3/uL (4.4-10.8)
[2024-03-20] MEDS: ASPirin-EC 81 mg tab PO SCH (09:24)
[2024-03-20] MEDS: [UNRECOGNIZED DRUG - REMARK] PO SCH (09:25)
--- NOTE | 2024-03-20 13:52 | DVHPN2 ---
Progress Note - Dictate Date Seen: Mar 19, 2024 Medical Necessity Reason Pt with a Central, PICC or Fol: No Subjective PT WELL KNOWN TO ME WITH HX OF METASTATIC COLON CA WITH METS TO THE LIVER ABD PAIN CACHEXIA CT OF ABD PELVIS SIGMOID MASS LIVER LESION KIDNEY CYST S/P COLONOSCOPY 10-12 CM CIRCUMFERENTIAL FRIABLE POLYPOID MASS BIOPSY POORLY DIFFERENTIATED ADENOCARCINOMA S/P HEMICOLECTOMY HX OF DIABETES NEUROPATHY VASCULOPATHY CAD HTN S/P PTCA STENT NON COMPLIANCE CHEMO WAS DELAYED BECAUSE OF HYPERGLYCEMIA POOR DIETARY COMPLIANCE vital signs Vital Sign Date Time Temp Pulse Resp B/P (MAP) Pulse Ox O2 Delivery O2 Flow Rate FiO2 03/20/24 09:00 97.9 64 16 103/61 (75) 97 97.9 03/20/24 08:00 Room Air* 0 21 Total Intake and Output 03/19/24 03/19/24 03/20/24 15:00 23:00 07:00 Intake Total 900 ml Balance 900 ml medications Current Medications Medications Dose Ordered Sig/Jody Route Start Time Stop Time Status Last Admin Dose Admin Diagnostic Test (Pha) 1 strip IQ4HR 03/19/24 20:00 03/20/24 11:35 1 STRIP Insulin Human Regular IQ4HR SC 03/19/24 20:00 03/20/24 11:35 8 UNITS Dextrose 50 ml UD PRN IV 03/19/24 17:15 Sodium Chloride 1,000 ml @ 60 mls/hr [id number] IV 03/19/24 17:30 03/20/24 09:34 60 MLS/HR Lorazepam 0.5 mg Q6HP PRN PO 03/19/24 17:30 Docusate Sodium 100 mg BIDPRN PRN PO 03/19/24 17:30 Acetaminophen/ Hydrocodone Bitart 1 tab Q4HP PRN PO 03/19/24 17:30 Ondansetron HCl 4 mg Q4HP PRN IV 03/19/24 17:30 Morphine Sulfate 2 mg Q4HPRN PRN IV 03/19/24 17:30 Aspirin 81 mg DAILY PO 03/20/24 10:00 03/20/24 09:24 81 MG Pravastatin Sodium 20 mg QPM PO 03/19/24 18:00 03/19/24 18:00 20 MG Patient Own Medication 5 mg DAILY PO 03/20/24 10:00 Patient Own Medication 25 mg DAILY PO 03/20/24 10:00 Patient Own Medication 10 mg DAILY PO 03/20/24 10:00 Gabapentin 600 mg TID PO 03/19/24 22:00 03/20/24 05:58 600 MG Metronidazole 100 ml @ 100 mls/hr Q8H IV 03/19/24 22:00 03/20/24 05:58 100 MLS/HR laboratory and microbiology Laboratory Tests 03/20/24 05:45 Test 03/20/24 05:45 Range/Units Serum Glucose 146 #H 74-106 mg/dL Problem List HX OF METASTATIC COLON CA WITH METS TO THE LIVER ABD PAIN CAC[facility]XIA CT OF ABD PELVIS SIGMOID MASS LIVER LESION KIDNEY CYST S/P COLONOSCOPY 10-12 CM CIRCUMFERENTIAL FRIABLE POLYPOID MASS BIOPSY POORLY DIFFERENTIATED ADENOCARCINOMA S/P HEMICOLECTOMY HX OF DIABETES NEUROPATHY VASCULOPATHY CAD HTN S/P PTCA STENT NON COMPLIANCE CHEMO WAS DELAYED BECAUSE OF HYPERGLYCEMIA POOR DIETARY COMPLIANCE LIVER ENZYMES ELEVATED SECONDARY TO METS HYPOKALEMIA Assessment/Plan SSI EDUCATION CORRECT K Plan discussed with: Patient Critical Care Time(min): 35 ABENA AU MD Mar 20, 2024 13:52
[2024-03-20] MEDS ORDERED: DEXTROSE (50%) 50ML SYRG IV PRN (15:45)
--- NOTE | 2024-03-20 15:48 | DVHPN2 ---
Progress Note Date Seen: Mar 20, 2024 Medical Necessity Reason Pt with a Central, PICC or Fol: No Subjective Patient reports: No new complaints Review of Systems: HEENT:Normal, CVS:Normal, RESPIRATORY:Normal, GI:Normal, :Normal, MSK:Normal, NEURO:Normal Objective vital signs Vital Sign Date Time Temp Pulse Resp B/P (MAP) Pulse Ox O2 Delivery O2 Flow Rate FiO2 03/20/24 13:00 97.8 66 18 111/62 (78) 96 97.8 03/20/24 08:00 Room Air* 0 21 Total Intake and Output 03/19/24 03/19/24 03/20/24 15:00 23:00 07:00 Intake Total 900 ml Balance 900 ml medications Current Medications Medications Dose Ordered Sig/Jody Route Start Time Stop Time Status Last Admin Dose Admin Diagnostic Test (Pha) 1 strip IQ4HR 03/19/24 20:00 03/20/24 11:35 1 STRIP Insulin Human Regular IQ4HR SC 03/19/24 20:00 03/20/24 11:35 8 UNITS Dextrose 50 ml UD PRN IV 03/19/24 17:15 Sodium Chloride 1,000 ml @ 60 mls/hr [id number] IV 03/19/24 17:30 03/20/24 09:34 60 MLS/HR Lorazepam 0.5 mg Q6HP PRN PO 03/19/24 17:30 Docusate Sodium 100 mg BIDPRN PRN PO 03/19/24 17:30 Acetaminophen/ Hydrocodone Bitart 1 tab Q4HP PRN PO 03/19/24 17:30 Ondansetron HCl 4 mg Q4HP PRN IV 03/19/24 17:30 Morphine Sulfate 2 mg Q4HPRN PRN IV 03/19/24 17:30 Aspirin 81 mg DAILY PO 03/20/24 10:00 03/20/24 09:24 81 MG Pravastatin Sodium 20 mg QPM PO 03/19/24 18:00 03/19/24 18:00 20 MG Patient Own Medication 5 mg DAILY PO 03/20/24 10:00 Patient Own Medication 25 mg DAILY PO 03/20/24 10:00 Patient Own Medication 10 mg DAILY PO 03/20/24 10:00 Gabapentin 600 mg TID PO 03/19/24 22:00 03/20/24 14:24 600 MG Metronidazole 100 ml @ 100 mls/hr Q8H IV 03/19/24 22:00 03/20/24 14:24 100 MLS/HR Examination: GENERAL:Normal, HEENT:Normal, NECK:Normal, LUNGS:Normal, CVS:Normal, ABDOMEN:Normal, MSK:Normal, SKIN:Normal, NEURO:Normal, :Normal laboratory and microbiology Laboratory Tests 03/20/24 05:45 Test 03/20/24 05:45 Range/Units Serum Glucose 146 #H 74-106 mg/dL Problem List/Assessment/Plan Problem List/Assessment/Plan #1 Sigmoid mass with adenocarcinoma, status post surgery with liver mets s/p chemo #2 Coronary artery disease, status post stent. #3 History of pacemaker. #4 Diabetes mellitus- uncontrolled: insulin, ivf *#5 Transaminitis. #6 thrombocytopenia: monitor #7 ?sirs ?sepsis #8 anemia advance care planning- full code- time spent 19 mins Plan discussed with: Patient Date of Service: Mar 20, 2024 Billing Provider: JACKY ORTIZ MD Common Visit Codes: [id number] INP/OBS CARE(HIGH) Secondary Visit Codes: [id number] CARE PLAN 30 MINUTES JACKY ORTIZ MD Mar 20, 2024 15:48
[2024-03-20] MEDS: InsuLIN REG 1unit/0.01ml Soln (100units/ml) SC SCH (16:00)
[2024-03-20] MEDS: POTASSIUM CHL 20 Meq TABLET PO ONE (16:23)
[2024-03-20] MEDS: INSULIN LANTUS (GLARGINE) 1 /0.01ml (100units/ml) SC SCH (21:50)
[2024-03-21] VITALS (7 sets, daily range): BP systolic 96–118; BP diastolic 59–74; PULSE 52–80; RESP 16–18; TEMP 97.4–98.5; O2SAT 94–98
[2024-03-21 07:23] LABS: Basophils # (auto) 0.1 10 ^3/uL (0-0.2); Basophils % (auto) 0.7 % (0.0-2.0); Eosinophils # (auto) 0.2 10 ^3/uL (0-0.8); Eosinophils % (auto) 1.9 % (0.0-7.0); Hematocrit 36.3 % (41.0-53.0); Hemoglobin 11.8 g/dL (13.5-17.5); Lymphocytes # (auto) 1.5 10 ^3/uL (0.4-5.4); Lymphocytes % (auto) 13.4 % (10.0-50.0); Mean Corpuscular Hemoglobin 26.3 pg (28.0-32.0); Mean Corpuscular Hgb Conc. 32.4 g/dL (32.0-36.0); Mean Corpuscular Volume 81.2 fL (80.0-100.0); Monocytes # (auto) 0.7 10 ^3/uL (0-1.3); Monocytes % (auto) 5.9 % (0.0-12.0); Neutrophils # (auto) 8.6 10 ^3/uL (1.6-8.6); Neutrophils % (auto) 78.1 % (37.0-80.0); Nucleated Red Blood Cells % 0.1 %; Platelet Count (auto) 142 10^3/uL (140-450); Red Blood Cells 4.47 10^6/uL (4.5-5.90); Red Cell Distribution Width 23.7 % (11.8-14.3)
[2024-03-21 07:50] LABS: Anion Gap 6 (5-15); Carbon Dioxide 28 mmol/L (20-31); Chloride 102 mmol/L (98-107); Potassium 3.6 mmol/L (3.5-5.1); Sodium 136 mmol/L (136-145)
[2024-03-21 07:56] LABS: Blood Urea Nitrogen 15 mg/dL (9-23); Magnesium 1.9 mg/dL (1.6-2.6)
[2024-03-21 08:05] LABS: Glucose 125 mg/dL (74-106)
--- NOTE | 2024-03-21 11:27 | DVHPN2 ---
Progress Note - Dictate Date Seen: Mar 21, 2024 Medical Necessity Reason Pt with a Central, PICC or Fol: No Subjective PT WELL KNOWN TO ME WITH HX OF METASTATIC COLON CA WITH METS TO THE LIVER ABD PAIN [facility] CT OF ABD PELVIS SIGMOID MASS LIVER LESION KIDNEY CYST S/P COLONOSCOPY 10-12 CM CIRCUMFERENTIAL FRIABLE POLYPOID MASS BIOPSY POORLY DIFFERENTIATED ADENOCARCINOMA S/P HEMICOLECTOMY HX OF DIABETES NEUROPATHY VASCULOPATHY CAD HTN S/P PTCA STENT NON COMPLIANCE CHEMO WAS DELAYED BECAUSE OF HYPERGLYCEMIA POOR DIETARY COMPLIANCE vital signs Vital Sign Date Time Temp Pulse Resp B/P (MAP) Pulse Ox O2 Delivery O2 Flow Rate FiO2 03/21/24 09:00 97.5 80 18 115/66 (82) 96 97.5 03/21/24 08:00 Room Air* 0 21 Total Intake and Output 03/20/24 03/20/24 03/21/24 15:00 23:00 07:00 Intake Total 900 ml 750 ml Balance 900 ml 750 ml medications Current Medications Medications Dose Ordered Sig/Jody Route Start Time Stop Time Status Last Admin Dose Admin Sodium Chloride 1,000 ml @ 60 mls/hr [id number] IV 03/19/24 17:30 03/21/24 04:33 60 MLS/HR Lorazepam 0.5 mg Q6HP PRN PO 03/19/24 17:30 Docusate Sodium 100 mg BIDPRN PRN PO 03/19/24 17:30 Acetaminophen/ Hydrocodone Bitart 1 tab Q4HP PRN PO 03/19/24 17:30 Ondansetron HCl 4 mg Q4HP PRN IV 03/19/24 17:30 Morphine Sulfate 2 mg Q4HPRN PRN IV 03/19/24 17:30 Aspirin 81 mg DAILY PO 03/20/24 10:00 03/21/24 08:28 81 MG Gabapentin 600 mg TID PO 03/19/24 22:00 03/21/24 05:44 600 MG Metronidazole 100 ml @ 100 mls/hr Q8H IV 03/19/24 22:00 03/21/24 05:45 100 MLS/HR Diagnostic Test (Pha) 1 strip IQ4HR 03/20/24 16:00 03/21/24 08:27 1 STRIP Insulin Human Regular IQ4HR SC 03/20/24 16:00 03/21/24 08:28 2 UNITS Dextrose 50 ml UD PRN IV 03/20/24 15:45 Insulin Glargine 20 units HS SC 03/20/24 22:00 03/20/24 21:50 20 UNITS laboratory and microbiology Laboratory Tests 03/21/24 06:49 Test 03/21/24 06:49 Range/Units Serum Glucose 125 H 74-106 mg/dL Problem List HX OF METASTATIC COLON CA WITH METS TO THE LIVER ABD PAIN [facility] CT OF ABD PELVIS SIGMOID MASS LIVER LESION KIDNEY CYST S/P COLONOSCOPY 10-12 CM CIRCUMFERENTIAL FRIABLE POLYPOID MASS BIOPSY POORLY DIFFERENTIATED ADENOCARCINOMA S/P HEMICOLECTOMY HX OF DIABETES NEUROPATHY VASCULOPATHY CAD HTN S/P PTCA STENT NON COMPLIANCE CHEMO WAS DELAYED BECAUSE OF HYPERGLYCEMIA POOR DIETARY COMPLIANCE LIVER ENZYMES ELEVATED SECONDARY TO METS HYPOKALEMIA LEUKOCYTOSIS Assessment/Plan SSI EDUCATION CORRECT K TITRATE ON INSULIN LANTUS TO 25 UNITS Plan discussed with: Patient, Other ABENA AU MD Mar 21, 2024 11:27
[2024-03-21] MEDS: INSULIN LANTUS (GLARGINE) 1 /0.01ml (100units/ml) SC SCH (11:58)
--- NOTE | 2024-03-21 12:07 | DVH ---
CHEST RADIOGRAPH Indication: LEUKOCYTOSIS/ Technique: Single frontal view of the chest was obtained COMPARISON: XY CHEST PORTABLE on DOS: 01/23/24, XY CHEST PORTABLE on DOS: 11/15/22 FINDINGS: Lines and Tubes: Right chest port in satisfactory position. Left chest wall pacemaker. Lungs: Clear Pleura: No effusion. No pneumothorax. Cardiomediastinal contours: Unremarkable Bones: Unremarkable IMPRESSION: No acute disease.
--- NOTE | 2024-03-21 15:09 | DVHPN2 ---
Progress Note Date Seen: Mar 21, 2024 Medical Necessity Reason Pt with a Central, PICC or Fol: No Subjective Patient reports: No new complaints Review of Systems: HEENT:Normal, CVS:Normal, RESPIRATORY:Normal, GI:Normal, :Normal, MSK:Normal, NEURO:Normal Objective vital signs Vital Sign Date Time Temp Pulse Resp B/P (MAP) Pulse Ox O2 Delivery O2 Flow Rate FiO2 03/21/24 13:00 97.7 63 16 113/74 (87) 98 97.7 03/21/24 08:00 Room Air* 0 21 Total Intake and Output 03/20/24 03/20/24 03/21/24 15:00 23:00 07:00 Intake Total 900 ml 750 ml Balance 900 ml 750 ml medications Current Medications Medications Dose Ordered Sig/Jody Route Start Time Stop Time Status Last Admin Dose Admin Sodium Chloride 1,000 ml @ 60 mls/hr [id number] IV 03/19/24 17:30 03/21/24 04:33 60 MLS/HR Lorazepam 0.5 mg Q6HP PRN PO 03/19/24 17:30 Docusate Sodium 100 mg BIDPRN PRN PO 03/19/24 17:30 Acetaminophen/ Hydrocodone Bitart 1 tab Q4HP PRN PO 03/19/24 17:30 Ondansetron HCl 4 mg Q4HP PRN IV 03/19/24 17:30 Morphine Sulfate 2 mg Q4HPRN PRN IV 03/19/24 17:30 Aspirin 81 mg DAILY PO 03/20/24 10:00 03/21/24 08:28 81 MG Gabapentin 600 mg TID PO 03/19/24 22:00 03/21/24 14:36 600 MG Metronidazole 100 ml @ 100 mls/hr Q8H IV 03/19/24 22:00 03/21/24 14:37 100 MLS/HR Diagnostic Test (Pha) 1 strip IQ4HR 03/20/24 16:00 03/21/24 11:56 1 STRIP Insulin Human Regular IQ4HR SC 03/20/24 16:00 03/21/24 11:57 9 UNITS Dextrose 50 ml UD PRN IV 03/20/24 15:45 Insulin Glargine 25 units HS SC 03/21/24 11:30 03/21/24 11:58 25 UNITS Examination: GENERAL:Normal, HEENT:Normal, NECK:Normal, LUNGS:Normal, CVS:Normal, ABDOMEN:Normal, MSK:Normal, SKIN:Normal, NEURO:Normal, :Normal laboratory and microbiology Laboratory Tests 03/21/24 06:49 Test 03/21/24 06:49 Range/Units Serum Glucose 125 H 74-106 mg/dL Problem List/Assessment/Plan Problem List/Assessment/Plan #1 Sigmoid mass with adenocarcinoma, status post surgery with liver mets s/p chemo #2 Coronary artery disease, status post stent. #3 History of pacemaker. #4 Diabetes mellitus- uncontrolled: insulin, ivf *#5 Transaminitis. #6 thrombocytopenia: monitor #7 ?sirs ?sepsis #8 anemia advance care planning- full code- time spent 19 mins Plan discussed with: Patient My Orders My Orders Orders - JACKY ORTIZ MD Procedure Category Date Status Time Glucose Blood PHA 03/20/24 In Process (Accu-Chek Comfort 16:00 Insulin R (Human) PHA 03/20/24 In Process (Insulin R) 16:00 Dextrose 50% Syringe PHA 03/20/24 In Process 15:45 Potassium Er Tablet PHA 03/20/24 In Process (Klor-Con Tablet) 15:45 Basic Metabolic Panel LAB 03/22/24 Verified 06:00 Complete Blood Count LAB 03/22/24 Verified 06:00 * Motor Expert CONS 03/21/24 Verified Consult Date of Service: Mar 21, 2024 Billing Provider: JACKY ORTIZ MD Common Visit Codes: [id number] INP/OBS CARE(HIGH) JACKY ORTIZ MD Mar 21, 2024 15:09
[2024-03-22 05:00] VITALS: BP 111/67; PULSE 63; RESP 18; TEMP 97.3; O2SAT 100
[2024-03-22 08:20] LABS: Basophils # (auto) 0.1 10 ^3/uL (0-0.2); Basophils % (auto) 0.5 % (0.0-2.0); Eosinophils # (auto) 0.3 10 ^3/uL (0-0.8); Eosinophils % (auto) 2.3 % (0.0-7.0); Hematocrit 36.7 % (41.0-53.0); Hemoglobin 11.6 g/dL (13.5-17.5); Lymphocytes # (auto) 1.4 10 ^3/uL (0.4-5.4); Lymphocytes % (auto) 12.6 % (10.0-50.0); Mean Corpuscular Hemoglobin 26.6 pg (28.0-32.0); Mean Corpuscular Hgb Conc. 31.7 g/dL (32.0-36.0); Mean Corpuscular Volume 83.9 fL (80.0-100.0); Monocytes # (auto) 0.7 10 ^3/uL (0-1.3); Neutrophils # (auto) 8.8 10 ^3/uL (1.6-8.6); Neutrophils % (auto) 78.6 % (37.0-80.0); Platelet Count (auto) 169 10^3/uL (140-450); Red Blood Cells 4.38 10^6/uL (4.5-5.90); White Blood Cell 11.3 10^3/uL (4.4-10.8)
[2024-03-22 08:24] LABS: Chloride 102 mmol/L (98-107); Potassium 3.8 mmol/L (3.5-5.1); Sodium 138 mmol/L (136-145)
[2024-03-22 08:25] LABS: Anion Gap 8 (5-15); Calcium 9.8 mg/dL (8.7-10.4); Carbon Dioxide 28 mmol/L (20-31)
[2024-03-22 08:30] LABS: BUN/Creatinine Ratio 21.6 (10.0-20.0); Blood Urea Nitrogen 16 mg/dL (9-23); Glucose 88 mg/dL (74-106)
[2024-03-22 09:00] VITALS: BP 105/67; PULSE 68; RESP 17; TEMP 97.6; O2SAT 98
--- NOTE | 2024-03-22 11:07 | DVHPN2 ---
Subjective Did not share any complaint Reviewed: Care Plan, H&P, Labs, Medications, Previous Orders, Radiology, Other (Consultation) Changes from previous H/P or p: Changes Objective Vitals Vital Signs Date Time Temp Pulse Resp B/P (MAP) Pulse Ox O2 Delivery O2 Flow Rate FiO2 03/22/24 09:00 97.6 68 17 105/67 (80) 98 97.6 03/21/24 20:00 Room Air* 0 21 Intake/Output Intake and Output 03/22/24 07:00 Intake Total 2047 ml Balance 2047 ml Intake Oral 1327 ml IV Total 720 ml # Voids 6 # Bowel Movements 5 General Appearance: Alert, Oriented X3, Cooperative Lungs: Other (Decreased air entry bilateral) Chest/Breasts: Other (Pacemaker in place on the left side; Port-A-Cath on the right side) Cardiovascular: Regular rate, Normal S1, Normal S2 Neuro: Normal speech, Cranial nerves 3-12 NL Psych/Mental Status: Mental status NL, Mood NL Medications Current Medications Medications Dose Ordered Sig/Jody Route Start Time Stop Time Status Last Admin Dose Admin Sodium Chloride 1,000 ml @ 60 mls/hr [id number] IV 03/19/24 17:30 03/22/24 04:35 60 MLS/HR Lorazepam 0.5 mg Q6HP PRN PO 03/19/24 17:30 Docusate Sodium 100 mg BIDPRN PRN PO 03/19/24 17:30 Acetaminophen/ Hydrocodone Bitart 1 tab Q4HP PRN PO 03/19/24 17:30 Ondansetron HCl 4 mg Q4HP PRN IV 03/19/24 17:30 Morphine Sulfate 2 mg Q4HPRN PRN IV 03/19/24 17:30 Aspirin 81 mg DAILY PO 03/20/24 10:00 03/22/24 10:06 81 MG Gabapentin 600 mg TID PO 03/19/24 22:00 03/22/24 05:39 600 MG Diagnostic Test (Pha) 1 strip IQ4HR 03/20/24 16:00 03/22/24 10:06 1 STRIP Insulin Human Regular IQ4HR SC 03/20/24 16:00 03/22/24 00:01 3 UNITS Dextrose 50 ml UD PRN IV 03/20/24 15:45 Insulin Glargine 25 units HS SC 03/21/24 11:30 12/5/24 21:15 25 UNITS Laboratory Results Laboratory Tests 03/22/24 07:39 Chemistry Test 03/22/24 07:39 Calcium Level 9.8 mg/dL (8.7-10.4) Urinalysis Test 03/19/24 12:30 Urine Color Light-yellow (Yellow) Urine Clarity Clear (Clear) Urine pH 5.5 (5.0-9.0) Urine Specific [place] 1.025 (1.001-1.035) Urine Protein Negative (Negative) Urine Ketones Trace (Negative) Urine Blood Negative /uL (Negative) Urine Nitrite Negative (Negative) Urine Bilirubin Negative (Negative) Urine Urobilinogen Normal mg/dL (Negative) Urine Leukocyte Esterase Negative /uL (Negative) Urine RBC 1 /hpf (0 - 3) Urine WBC 1 /hpf (0 - 3) Urine Squamous Epithelial Cells None seen /hpf (<5) Urine Bacteria None seen /hpf (None Seen) Urine Glucose 4+ mg/dL (Normal) H Labs and/or images reviewed: Labs reviewed by me, Image(s) reviewed by me Assessment/Plan Assessment/Plan Covering Dr. 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 This medical document was created using an electronic medical record system with computerized dictation system. Although this document has been carefully reviewed, there might still be some phonetic and typographical errors. These areas are purely typographical due to imperfections of the software programs, and do not reflect any compromise in the patient's medical care. Plan discussed with: Patient, Other (Nurse) Date of Service: Mar 22, 2024 Billing Provider: BELINDA PAZ MD Common Visit Codes: [id number] INP/OBS CARE(HIGH) Secondary Visit Codes: [id number] CARE PLAN 30 MINUTES (20 minutes) BELINDA PAZ MD Mar 22, 2024 11:07
[2024-03-22 13:00] VITALS: BP 119/68; PULSE 61; RESP 19; TEMP 98.2; O2SAT 97
--- NOTE | 2024-03-22 14:33 | DVHPN2 ---
Progress Note - Dictate Date Seen: Mar 22, 2024 Medical Necessity Reason Pt with a Central, PICC or Fol: No Subjective PT WELL KNOWN TO ME WITH HX OF METASTATIC COLON CA WITH METS TO THE LIVER ABD PAIN CACHEXIA CT OF ABD PELVIS SIGMOID MASS LIVER LESION KIDNEY CYST S/P COLONOSCOPY 10-12 CM CIRCUMFERENTIAL FRIABLE POLYPOID MASS BIOPSY POORLY DIFFERENTIATED ADENOCARCINOMA S/P HEMICOLECTOMY HX OF DIABETES NEUROPATHY VASCULOPATHY CAD HTN S/P PTCA STENT NON COMPLIANCE CHEMO WAS DELAYED BECAUSE OF HYPERGLYCEMIA POOR DIETARY COMPLIANCE vital signs Vital Sign Date Time Temp Pulse Resp B/P (MAP) Pulse Ox O2 Delivery O2 Flow Rate FiO2 03/22/24 09:00 97.6 68 17 105/67 (80) 98 97.6 03/21/24 20:00 Room Air* 0 21 Total Intake and Output 03/21/24 03/21/24 03/22/24 15:00 23:00 07:00 Intake Total 1672 ml 375 ml Balance 1672 ml 375 ml medications Current Medications Medications Dose Ordered Sig/Jody Route Start Time Stop Time Status Last Admin Dose Admin Sodium Chloride 1,000 ml @ 60 mls/hr [id number] IV 03/19/24 17:30 03/22/24 04:35 60 MLS/HR Lorazepam 0.5 mg Q6HP PRN PO 03/19/24 17:30 Docusate Sodium 100 mg BIDPRN PRN PO 03/19/24 17:30 Acetaminophen/ Hydrocodone Bitart 1 tab Q4HP PRN PO 03/19/24 17:30 Ondansetron HCl 4 mg Q4HP PRN IV 03/19/24 17:30 Morphine Sulfate 2 mg Q4HPRN PRN IV 03/19/24 17:30 Aspirin 81 mg DAILY PO 03/20/24 10:00 03/22/24 10:06 81 MG Gabapentin 600 mg TID PO 03/19/24 22:00 03/22/24 05:39 600 MG Dextrose 50 ml UD PRN IV 03/20/24 15:45 Insulin Glargine 25 units HS SC 03/21/24 11:30 03/21/24 21:15 25 UNITS Diagnostic Test (Pha) 1 strip ACHS 03/22/24 17:00 Insulin Human Regular ACHS SC 03/22/24 17:00 laboratory and microbiology Laboratory Tests 03/22/24 07:39 Test 03/22/24 07:39 Range/Units Serum Glucose 88 74-106 mg/dL Problem List HX OF METASTATIC COLON CA WITH METS TO THE LIVER ABD PAIN [place] CT OF ABD PELVIS SIGMOID MASS LIVER LESION KIDNEY CYST S/P COLONOSCOPY 10-12 CM CIRCUMFERENTIAL FRIABLE POLYPOID MASS BIOPSY POORLY DIFFERENTIATED ADENOCARCINOMA S/P HEMICOLECTOMY HX OF DIABETES NEUROPATHY VASCULOPATHY CAD HTN S/P PTCA STENT NON COMPLIANCE CHEMO WAS DELAYED BECAUSE OF HYPERGLYCEMIA POOR DIETARY COMPLIANCE LIVER ENZYMES ELEVATED SECONDARY TO METS HYPOKALEMIA LEUKOCYTOSIS Assessment/Plan SSI EDUCATION CORRECT K TITRATE ON INSULIN LANTUS TO 25 UNITS ADD 10 UNITS LANTUS IN AM Plan discussed with: Patient ABENA AU MD Mar 22, 2024 14:33
[2024-03-22 17:00] VITALS: BP_SYST 104; BP_SYST 106; BP_DIAS 55; BP_DIAS 60; PULSE 97; RESP 19; TEMP 97.1; TEMP 98; O2SAT 95
[2024-03-22] MEDS: ACCU-CHEK COMFORT CURVE STRIP VI SCH (17:35)
[2024-03-22] MEDS: InsuLIN REG 1unit/0.01ml Soln (100units/ml) SC SCH (17:40)
[2024-03-22 20:00] VITALS: RESP 17
[2024-03-22 21:00] VITALS: BP 110/59; PULSE 77; RESP 20; TEMP 97.5; O2SAT 96
[2024-03-23 01:00] VITALS: BP 97/63; PULSE 63; RESP 18; TEMP 98.1; O2SAT 95
[2024-03-23 05:00] VITALS: BP 123/77; PULSE 89; RESP 18; TEMP 97.8; O2SAT 94
[2024-03-23] MEDS: INSULIN LANTUS (GLARGINE) 1 /0.01ml (100units/ml) SC SCH (06:14)
[2024-03-23 07:59] LABS: Basophils # (auto) 0.1 10 ^3/uL (0-0.2); Basophils % (auto) 0.6 % (0.0-2.0); Eosinophils # (auto) 0.2 10 ^3/uL (0-0.8); Eosinophils % (auto) 1.4 % (0.0-7.0); Hematocrit 34.2 % (41.0-53.0); Hemoglobin 11.2 g/dL (13.5-17.5); Lymphocytes # (auto) 1.5 10 ^3/uL (0.4-5.4); Lymphocytes % (auto) 11.9 % (10.0-50.0); Mean Corpuscular Hemoglobin 26.8 pg (28.0-32.0); Mean Corpuscular Hgb Conc. 32.9 g/dL (32.0-36.0); Mean Corpuscular Volume 81.5 fL (80.0-100.0); Monocytes # (auto) 0.9 10 ^3/uL (0-1.3); Monocytes % (auto) 7.5 % (0.0-12.0); Neutrophils # (auto) 9.6 10 ^3/uL (1.6-8.6); Neutrophils % (auto) 78.6 % (37.0-80.0); Nucleated Red Blood Cells % 0.1 %; Platelet Count (auto) 190 10^3/uL (140-450); Red Cell Distribution Width 24.6 % (11.8-14.3); White Blood Cell 12.3 10^3/uL (4.4-10.8)
[2024-03-23 08:07] LABS: Albumin 3.4 g/dL (3.2-4.8); Anion Gap 8 (5-15); BUN/Creatinine Ratio 26.9 (10.0-20.0); Bilirubin, Total 1.2 mg/dL (0.2-1.0); Blood Urea Nitrogen 21 mg/dL (9-23); Calcium 9.7 mg/dL (8.7-10.4); Carbon Dioxide 28 mmol/L (20-31); Chloride 100 mmol/L (98-107); Glucose 104 mg/dL (74-106); Magnesium 1.6 mg/dL (1.6-2.6); Potassium 3.7 mmol/L (3.5-5.1); Sodium 136 mmol/L (136-145)
[2024-03-23 08:10] LABS: Alanine Aminotransferase 61 U/L (7-40); Alkaline Phosphatase 637 U/L (46-116); Aspartate Aminotransferase 71 U/L (13-40); Total Protein 5.3 g/dL (5.7-8.2)
[2024-03-23 09:00] VITALS: BP 100/64; PULSE 74; RESP 16; TEMP 97.4; O2SAT 95
--- NOTE | 2024-03-23 12:19 | DVHPN2 ---
Subjective The patient is seen and examined at bedside. No complaint today. Reviewed: Care Plan, H&P, Labs, Medications, Previous Orders, Radiology, Other (Consultation) Changes from previous H/P or p: No Changes Objective Vitals Vital Signs Date Time Temp Pulse Resp B/P (MAP) Pulse Ox O2 Delivery O2 Flow Rate FiO2 03/23/24 09:00 97.4 74 16 100/64 (76) 95 97.4 03/22/24 20:00 Room Air* 0 21 Intake/Output Intake and Output 03/23/24 07:00 Intake Total 4150 ml Output Total 1500 ml Balance 2650 ml Intake Oral 4150 ml Output Urine Total 1500 ml # Voids 7 # Bowel Movements 1 General Appearance: Alert, Oriented X3, Cooperative Lungs: Other (Decreased air entry bilateral) Chest/Breasts: Other (Pacemaker in place on the left side; Port-A-Cath on the right side) Cardiovascular: Regular rate, Normal S1, Normal S2 Neuro: Normal speech, Cranial nerves 3-12 NL Psych/Mental Status: Mental status NL, Mood NL Medications Current Medications Medications Dose Ordered Sig/Jody Route Start Time Stop Time Status Last Admin Dose Admin Sodium Chloride 1,000 ml @ 60 mls/hr [id number] IV 03/19/24 17:30 03/23/24 05:54 60 MLS/HR Lorazepam 0.5 mg Q6HP PRN PO 03/19/24 17:30 Docusate Sodium 100 mg BIDPRN PRN PO 03/19/24 17:30 Acetaminophen/ Hydrocodone Bitart 1 tab Q4HP PRN PO 03/19/24 17:30 Ondansetron HCl 4 mg Q4HP PRN IV 03/19/24 17:30 Morphine Sulfate 2 mg Q4HPRN PRN IV 03/19/24 17:30 Aspirin 81 mg DAILY PO 03/20/24 10:00 03/23/24 09:34 81 MG Gabapentin 600 mg TID PO 03/19/24 22:00 03/23/24 05:53 600 MG Dextrose 50 ml UD PRN IV 03/20/24 15:45 Insulin Glargine 25 units HS SC 03/21/24 11:30 03/22/24 21:43 25 UNITS Diagnostic Test (Pha) 1 strip ACHS 03/22/24 17:00 03/23/24 11:39 1 STRIP Insulin Human Regular ACHS IA 03/22/24 17:00 03/23/24 11:41 3 UNITS Insulin Glargine 10 units QAM IA 03/23/24 07:00 03/23/24 06:14 10 UNITS Laboratory Results Laboratory Tests 03/23/24 07:08 Chemistry Test 03/23/24 07:08 Albumin 3.4 g/dL (3.2-4.8) Calcium Level 9.7 mg/dL (8.7-10.4) Magnesium Level 1.6 mg/dL (1.6-2.6) Total Protein 5.3 g/dL (5.7-8.2) L LFT Test 03/23/24 07:08 Alanine Aminotransferase (ALT) 61 U/L (7-40) H Alkaline Phosphatase 637 U/L (46-116) H Aspartate Amino Transferase (AST) 71 U/L (13-40) H Total Bilirubin 1.2 mg/dL (0.2-1.0) H Urinalysis Test 03/19/24 12:30 Urine Color Light-yellow (Yellow) Urine Clarity Clear (Clear) Urine pH 5.5 (5.0-9.0) Urine Specific [place] 1.025 (1.001-1.035) Urine Protein Negative (Negative) Urine Ketones Trace (Negative) Urine Blood Negative /uL (Negative) Urine Nitrite Negative (Negative) Urine Bilirubin Negative (Negative) Urine Urobilinogen Normal mg/dL (Negative) Urine Leukocyte Esterase Negative /uL (Negative) Urine RBC 1 /hpf (0 - 3) Urine WBC 1 /hpf (0 - 3) Urine Squamous Epithelial Cells None seen /hpf (<5) Urine Bacteria None seen /hpf (None Seen) Urine Glucose 4+ mg/dL (Normal) H Labs and/or images reviewed: Labs reviewed by me Assessment/Plan Assessment/Plan #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 #Elevated LFTs due to liver metastasis #CAD status post stenting #Pacemaker in place #Thrombocytopenia; leukocytosis; suspected sepsis/suspected SIRS #Hyponatremia with ERIC; likely vasomotor nephropathy #Normocytic anemia; most likely inflammatory #Uncontrolled diabetes mellitus type 2 Avoid nephrotoxic agents and hepatotoxic agents Cardiology is following Continue insulin sliding scale with hypoglycemia protocol Continue IV fluids as indicated Continue pain management as indicated Plan discussed with: Patient Date of Service: Mar 23, 2024 Billing Provider: WEST GRAF MD Common Visit Codes: [id number] INP/OBS CARE(HIGH) WEST GRAF MD Mar 23, 2024 12:19
[2024-03-23 13:00] VITALS: BP 112/73; PULSE 80; RESP 14; TEMP 97.8; O2SAT 99
[2024-03-23 17:09] VITALS: BP 94/69; PULSE 71; RESP 14; TEMP 97.8; O2SAT 97
[2024-03-23 21:00] VITALS: BP 92/53; PULSE 77; RESP 19; TEMP 98.4; O2SAT 95
[2024-03-24 05:00] VITALS: BP 107/70; PULSE 97; RESP 18; TEMP 97.4; O2SAT 98
[2024-03-24 09:00] VITALS: BP 102/60; PULSE 69; RESP 12; TEMP 97.6; O2SAT 95
--- NOTE | 2024-03-24 12:52 | DVHDS2 ---
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 #Elevated LFTs due to liver metastasis #CAD status post stenting #Pacemaker in place #Thrombocytopenia; leukocytosis; suspected sepsis/suspected SIRS #Hyponatremia with ERIC; likely vasomotor nephropathy #Normocytic anemia; most likely inflammatory #Uncontrolled diabetes mellitus type 2 Labs/Diagnostic Data: Laboratory Results Test 03/24/24 06:31 03/23/24 07:08 03/20/24 05:45 03/19/24 13:11 POC Glucose 110 mg/dl (70-106) White Blood Count 12.3 10^3/uL (4.4-10.8) Red Blood Count 4.20 10^6/uL (4.5-5.90) Hemoglobin 11.2 g/dL (13.5-17.5) Hematocrit 34.2 % (41.0-53.0) Mean Corpuscular Volume 81.5 fL (80.0-100.0) Mean Corpuscular Hemoglobin 26.8 pg (28.0-32.0) Mean Corpuscular Hemoglobin Concent 32.9 g/dL (32.0-36.0) Red Cell Distribution Width 24.6 % (11.8-14.3) Platelet Count 190 10^3/uL (140-450) Mean Platelet Volume 9.3 fL (6.9-10.8) Neutrophils (%) (Auto) 78.6 % (37.0-80.0) Lymphocytes (%) (Auto) 11.9 % (10.0-50.0) Monocytes (%) (Auto) 7.5 % (0.0-12.0) Eosinophils (%) (Auto) 1.4 % (0.0-7.0) Basophils (%) (Auto) 0.6 % (0.0-2.0) Neutrophils # (Auto) 9.6 10 ^3/uL (1.6-8.6) Lymphocytes # (Auto) 1.5 10 ^3/uL (0.4-5.4) Monocytes # (Auto) 0.9 10 ^3/uL (0-1.3) Eosinophils # (Auto) 0.2 10 ^3/uL (0-0.8) Basophils # (Auto) 0.1 10 ^3/uL (0-0.2) Nucleated Red Blood Cells 0.1 % Sodium Level 136 mmol/L (136-145) Potassium Level 3.7 mmol/L (3.5-5.1) Chloride Level 100 mmol/L (98-107) Carbon Dioxide Level 28 mmol/L (20-31) Anion Gap 8 (5-15) Blood Urea Nitrogen 21 mg/dL (9-23) Creatinine 0.78 mg/dL (0.700-1.30) Glomerular Filtration Rate Calc 104 mL/min (>90) BUN/Creatinine Ratio 26.9 (10.0-20.0) Serum Glucose 104 mg/dL (74-106) Calcium Level 9.7 mg/dL (8.7-10.4) Magnesium Level 1.6 mg/dL (1.6-2.6) Total Bilirubin 1.2 mg/dL (0.2-1.0) Aspartate Amino Transferase (AST) 71 U/L (13-40) Alanine Aminotransferase (ALT) 61 U/L (7-40) Alkaline Phosphatase 637 U/L (46-116) Total Protein 5.3 g/dL (5.7-8.2) Albumin 3.4 g/dL (3.2-4.8) Lipase 48 U/L (12-53) Ammonia < 10 umol/L (11-32) Test 03/19/24 12:30 03/19/24 11:24 Urine Color Light-yellow (Yellow) Urine Clarity Clear (Clear) Urine pH 5.5 (5.0-9.0) Urine Specific [place] 1.025 (1.001-1.035) Urine Protein Negative (Negative) Urine Ketones Trace (Negative) Urine Blood Negative /uL (Negative) Urine Nitrite Negative (Negative) Urine Bilirubin Negative (Negative) Urine Urobilinogen Normal mg/dL (Negative) Urine Leukocyte Esterase Negative /uL (Negative) Urine RBC 1 /hpf (0 - 3) Urine WBC 1 /hpf (0 - 3) Urine Squamous Epithelial Cells None seen /hpf (<5) Urine Bacteria None seen /hpf (None Seen) Urine Glucose 4+ mg/dL (Normal) Hemoglobin A1c 8.7 % A1C (<5.7) Other Laboratory Tests 03/23/24 07:08 Brief Hx & Hospital Course: Celestino Garcia is a 58YO M who has a pmHx of CA, CAD, hypertension, pacemaker, PTCA, and colon cancer with liver mets who was advised by his oncologist to go to the ED for elevated LFTs and requests CT abdomen and pelvis. The CT of abdomen and pelvis showed: Multiple liver lesions as described above, suspected metastatic disease, grossly similar compared to the prior exam, although limited evaluation on noncontrast enhanced exam. Prominent para-aortic lymph nodes rectal lymph node, suspicious for lalit metastatic disease. Ovoid mass adjacent to postsurgical changes in the rectum, with fat density associated with the mass. Differential considerations include sequela of prior contained perforation, fat necrosis, focal intraperitoneal fat infarction, or neoplasm. The patient also was found to have hyperglycemia not well controlled. We are adjust his medication. The patient also had elevation of white cell count with possible sepsis. The patient was empirically treated with IV antibiotic Flagyl 500 mg IV q.day. Pain controlled with IV pain medication and [place]. The patient is still need further management of his hyperglycemia however he decided to leave against medical advice. The patient verbally understand the consequences of leaving against medical advice that can result to sepsis, even but patient is still choose to leave the hospital against medical advice. Physical exam was done prior to AMA: HEENT: Normocephalic atraumatic pupils equal react to light and accommodation. Extraocular muscles intact, conjunctiva pink, oropharynx moist, no thrush, no exudate. Lymphatic: No lymphadenopathy Cardiovascular exam: S1, S2 was heard. No murmurs, rubs, gallops Lung: Clear on auscultation bilaterally, no wheeze, rale, rhonchi. GI: Abdominal soft, nondistended, nontenderness, positive bowel sounds. Extremity: No crepitus, cyanosis, edema. Pedal pulses present bilateral. Full range of motion. Skin: Normal turgor, no rash. Psych: Alert, oriented x3. Neurology: No focal deficits, cranial nerve II to XII grossly intact. This medical document was created using an electronic medical record system with [employer] ([employer]: [place]) direct computerized dictation system. Although this document has been carefully reviewed, there may still be some phonetic and typographical errors. These areas are purely typographical due to imperfections of the software programs, and do not reflect any compromise in the patient's medical care. 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 Patient was counseled about treatment plan, medications, possible side effects, patientverbalized understanding. All questions were answered to the best of my ability. This discharge took greater then 30 minutes in planning, reviewing documentation, counseling the patient, and discussing with other team members." ASSESSMENT ASSESSMENT Assessment Date of Service: Mar 24, 2024 Billing Provider: WEST GRAF MD Common Visit Codes: 68157-OXW/OBS DISCH DAY >30min WEST GRAF MD Mar 24, 2024 12:52
--- NOTE | 2024-03-28 11:47 | PEER ---
Peer to Peer Review Time DATE: 03/28/24 TIME: 11:46 Review and Recommendations: Spoke with Dr. Suarez, approved for inpatient for Sepsis. SAMARIA ENCISO MD Mar 28, 2024 11:47
== END 2024-03-24 09:45 | disposition left against medical advice (07) | DRG 871 ==
LOC: ER 11:21 → OVERFLOW 17:27 → WEST WING 21:36
PROVIDERS: ATTEND Internal Medicine
DX: A41.9 Sepsis, unspecified organism (principal); N17.0 Acute kidney failure with tubular necrosis; C78.5 Secondary malignant neoplasm of large intestine and rectum; C78.7 Secondary malignant neoplasm of liver and intrahepatic bile duct; E87.1 Hypo-osmolality and hyponatremia; E11.40 Type 2 diabetes mellitus with diabetic neuropathy, unspecified; E11.65 Type 2 diabetes mellitus with hyperglycemia; E87.6 Hypokalemia; Z53.29 Procedure and treatment not carried out because of patient's decision for other reasons; D69.6 Thrombocytopenia, unspecified; N28.1 Cyst of kidney, acquired; I25.10 Atherosclerotic heart disease of native coronary artery without angina pectoris; I10 Essential (primary) hypertension; D63.8 Anemia in other chronic diseases classified elsewhere; Z79.4 Long term (current) use of insulin; Z85.038 Personal history of other malignant neoplasm of large intestine; Z91.199 Patient's noncompliance with other medical treatment and regimen due to unspecified reason; Z95.0 Presence of cardiac pacemaker; Z95.5 Presence of coronary angioplasty implant and graft; Z90.49 Acquired absence of other specified parts of digestive tract
CPT/HCPCS: 36415; 71045; 74176; 80048; 80053; 81001; 82140; 82962; 83036; 83690; 83735; 85025; 96361; 96374; G0378; J1815; J3490

== ENCOUNTER → 2024-04-15 | Outpatient (CLI) | payer OTHER, MEDICAID ==
[~2024-04-15] MED LIST changes: -HYDR1TAB97 PO; +IOHEXOL 350 MG/ML 100ML IJ ONE; -LEVEMIR SC; +READI-CAT 2 (BARIUM SULF)(VANILLA SMOOTHIE) 450ML ONE; -SEMA2INJ3 SC
[2024-04-15 12:35] VITALS: BP 101/63; PULSE 70; RESP 17; O2SAT 97
[2024-04-15] MEDS: MVI in SODIUM CHLORIDE 0.9% 500 ML IVB ONE (12:49)
[2024-04-15] MEDS: MULTIPLE VIT 10 ML IV ONE (12:52)
[2024-04-15 15:17] VITALS: BP 110/71; PULSE 76; RESP 16; O2SAT 97
--- NOTE | 2024-04-15 15:41 | DVH ---
Exam: CT CT AB PEL WITH IV CON ONLY History: HX CA COMPARISON: CT CT AB PEL WITH ORAL CON ONLY on DOS: 02/14/24, CT CT AB PEL WITH IV CON ONLY on DOS: , CT CT AB PEL WITH IV CON ONLY on DOS: 11/15/22 Technique: Multidetector spiral CT of the abdomen and pelvis was performed from lung bases to pubic symphysis. Intravenous contrast was administered during this examination. Portal venous imaging was obtained. Axial, coronal and sagittal multiplanar reformats were performed by the technologist on a separate workstation. Radiation Dose : Abdomen/Pelvis: CTDIvol 6 mGy, DLP 344 mGy*cm. CONTRAST: Type of contrast: Omni 300 Contrast injected: 100 mL Findings: Lung Bases: No acute or significant lung base finding. Normal heart size. No pleural or pericardial effusion. Liver: Multiple hypoenhancing right hepatic masses, largest measuring up to 91 x 109 mm. Gallbladder and biliary Tree: Unremarkable Spleen: Unremarkable Pancreas: The pancreas is normal in appearance without focal lesions or abnormal enhancement. Adrenal Glands: Unremarkable Kidneys: No hydronephrosis. Bladder: Unremarkable Bowel: The stomach is grossly normal in appearance. Postsurgical changes in the rectosigmoid. Adjace nt mesenteric stranding. Postsurgical changes in the region of the cecum. No evidence of obstruction. The appendix is not visualized; however, no secondary findings of acute appendicitis identified. Ascites: Absent Lymphadenopathy: 10 mm lymph node in the perirectal soft tissues. Abdominal wall and Mesentery: Unremarkable. Vasculature: The visualized abdominal aorta is normal in size and caliber. Abdominal and pelvic vess els demonstrate normal enhancement. Pelvic Organs: Unremarkable Musculoskeletal: No aggressive focal bony lesions, acute fractures or dislocation. IMPRESSION: 1. Multiple hypoenhancing masses in the right lobe of the liver, largest measuring up to 109 mm consi stent with metastatic disease. Some stranding around the rectosigmoid with a lymph node measuring up to 10 mm in short axis, residual disease is not excluded. Clinical correlation and continued follow-u p is recommended. Consider further evaluation with PET-CT.. Radiation optimization: All CT scans at this facility use at least one of these dose optimization octavio hniques: Automated exposure control mA and/or kV adjustment per patient size (includes targeted exams where dose is matched to clinical indication) or iterative reconstruction. HS:Y
== END | disposition home or self-care (01) ==
LOC: Rad HDHVI 12:46
PROVIDERS: ATTEND Internal Medicine Cardiovascular Disease
DX: E86.0 Dehydration (principal); C61 Malignant neoplasm of prostate; I10 Essential (primary) hypertension; E11.9 Type 2 diabetes mellitus without complications; I25.9 Chronic ischemic heart disease, unspecified
CPT/HCPCS: 74177; 96365; 96366; G0463; J3411; J3475; Q9967; 96360; 96361